=== PATIENT | male | born 1965 | race Caucasian/White ===

== ENCOUNTER 2021-06-14 19:14 | Inpatient (IN) | payer BC ==
[2021-06-14] MEDS ORDERED: SODIUM CHLORIDE 0.9% 500 ML 500 ML IV STA (20:07)
[2021-06-14] MEDS ORDERED: ALBUTEROL HFA INHALER INHALATION STA (20:07)
[2021-06-14] MEDS ORDERED: DEXAMETHASONE SOD PHOSPHATE 10 MG/ML 1 ML VIAL IVP STA (20:08)
--- NOTE | 2021-06-14 20:12 | ED ---
General Adult HPI - General Chief complaint: Upper Respiratory Infection Stated complaint: ELIDA-covid+ Time Seen by Provider: 06/14/21 20:00 Source: patient, RN notes reviewed, old records reviewed Mode of arrival: wheelchair Limitations: no limitations - History of Present Illness Initial comments: 55-year-old male presents to the emergency room with 1 week of cough and congestion. He was diagnosed with coronavirus on May 09. He has been having increasing shortness of breath and weakness. He states that sometimes he feels as though his balance is off. He states he's had decreased oral intake. He denies any pain or fevers, no nausea, vomiting or diarrhea. No medications on a daily basis. He does smoke 2 packs a day. -: week(s) (1) Location: chest Severity scale (1-10): 1 (Bodyaches) Associated Symptoms: cough, malaise, shortness of breath, weakness Treatments Prior to Arrival: none - Related Data Home Medications Medication Instructions Recorded Confirmed No Known Home Medications 06/14/21 06/14/21 Allergies Allergy/AdvReac Type Severity Reaction Status Date / Time No Known Allergies Allergy Verified 06/14/21 20:36 Review of Systems ROS Statement: Those systems with pertinent positive or pertinent negative responses have been documented in the HPI. ROS Other: All systems not noted in ROS Statement are negative. Past Medical History Past Medical History: Hypertension Additional Past Medical History / Comment(s): covid 06/08/21 History of Any Multi-Drug Resistant Organisms: Unobtainable Past Surgical History: No Surgical Hx Reported Past Psychological History: No Psychological Hx Reported Smoking Status: Current every day smoker Past Alcohol Use History: None Reported Past Drug Use History: None Reported General Exam Limitations: no limitations General appearance: alert, in no apparent distress Head exam: Present: atraumatic Eye exam: Present: normal appearance, EOMI, other (skin tag right eyelid) ENT exam: Present: normal exam, mucous membranes dry Neck exam: Present: full ROM. Absent: tenderness, meningismus Respiratory exam: Present: wheezes, decreased breath sounds (Diminished on the right). Absent: rales, rhonchi, chest wall tenderness, accessory muscle use Cardiovascular Exam: Present: regular rate, normal heart sounds. Absent: JVD GI/Abdominal exam: Present: soft. Absent: tenderness Extremities exam: Absent: pedal edema Back exam: Absent: tenderness, CVA tenderness (R), CVA tenderness (L) Neurological exam: Present: alert, oriented X3, CN II-XII intact Expanded Patient oriented to: Present: person, place, time Speech: Present: fluid speech Cranial nerves: EOM's Intact: Normal, Gag Reflex: Normal, Tongue Deviation: Normal Cerebellar function: Finger to Nose: Normal Motor strength exam: RUE: 5, LUE: 5, RLE: 5, LLE: 5 Eye Response: (4) open spontaneously Motor Response: (6) obeys commands Verbal Response: (5) oriented [place] Total: 15 Psychiatric exam: Present: normal affect, normal mood Skin exam: Present: warm, dry, intact, normal color. Absent: cyanosis, diaphoretic, erythema Course Vital Signs 06/14/21 06/14/21 19:40 21:10 Temperature 98.9 F Pulse Rate 91 79 Respiratory 24 20 Rate Blood Pressure 129/89 123/79 O2 Sat by Pulse 91 L 96 Oximetry EKG Findings - EKG Comments: EKG Findings:: Repeat EKG at 2154 shows sinus rhythm with a ventricular rate of 76, PA interval 0.184, QRS 0.112, QTC 0.465 - EKG Results: EKG: sinus rhythm (Ventricular rate of 83, PA interval 0.178, QRS 0.120, QTC 0.491) Medical Decision Making - Medical Decision Making 55-year-old male presents with cough and congestion with increasing shortness of breath and weakness. He was diagnosed with coronavirus on May 09. Chest x-ray shows mild multifocal ill-defined bases consistent with atypical pneumonia. Patient's troponin is elevated at 1.190, d-dimer is 1.95, creatinine is 1.55 with a GFR of 50. Patient was given IV fluids and was started on heparin drip. CT angiogram was not performed based on patient's creatinine and GFR. I did discuss this case with Dr. Awan and Dr. Mcmillan. Patient will be admitted to the hospital with cardiology and pulmonology consults. Patient is agreeable to this plan of care. Oxygen saturation is 97% and he is feeling better after IV fluids and medications. - Lab Data Result diagrams: 06/14/21 21:10 06/14/21 21:10 Lab Results 06/14/21 06/14/21 06/14/21 Range/Units 21:10 21:10 21:10 WBC 6.4 (3.8-10.6) k/uL RBC 5.13 (4.30-5.90) m/uL Hgb 17.5 (13.0-17.5) gm/dL Hct 51.2 (39.0-53.0) % MCV 99.8 (80.0-100.0) fL MCH 34.1 (25.0-35.0) pg MCHC 34.2 (31.0-37.0) g/dL RDW 14.0 (11.5-15.5) % Plt Count 153 (150-450) k/uL MPV 10.0 Neutrophils % 75 % Lymphocytes % 14 % Monocytes % 5 % Eosinophils % 1 % Basophils % 1 % Neutrophils # 4.8 (1.3-7.7) k/uL Lymphocytes # 0.9 L (1.0-4.8) k/uL Monocytes # 0.3 (0-1.0) k/uL Eosinophils # 0.1 (0-0.7) k/uL Basophils # 0.0 (0-0.2) k/uL PT 10.5 (9.0-12.0) sec INR 1.0 (<1.2) APTT 23.2 (22.0-30.0) sec D-Dimer 1.95 H (<0.60) mg/L FEU Sodium 135 L (137-145) mmol/L Potassium 3.8 (3.5-5.1) mmol/L Chloride 102 (98-107) mmol/L Carbon Dioxide 27 (22-30) mmol/L Anion Gap 6 mmol/L BUN 39 H (9-20) mg/dL Creatinine 1.55 H (0.66-1.25) mg/dL Est GFR (CKD-EPI)AfAm 57 (>60 ml/min/1.73 sqM) Est GFR (CKD-EPI)NonAf 50 (>60 ml/min/1.73 sqM) Glucose 122 H (74-99) mg/dL Plasma Lactic Acid Elvis (0.7-2.0) mmol/L Calcium 8.5 (8.4-10.2) mg/dL Magnesium 2.9 H (1.6-2.3) mg/dL Total Bilirubin 1.9 H (0.2-1.3) mg/dL AST 218 H (17-59) U/L ALT 168 H (4-49) U/L Alkaline Phosphatase 80 (38-126) U/L Troponin I (0.000-0.034) ng/mL Total Protein 6.7 (6.3-8.2) g/dL Albumin 3.6 (3.5-5.0) g/dL 06/14/21 06/14/21 Range/Units 21:10 21:10 WBC (3.8-10.6) k/uL RBC (4.30-5.90) m/uL Hgb (13.0-17.5) gm/dL Hct (39.0-53.0) % MCV (80.0-100.0) fL MCH (25.0-35.0) pg MCHC (31.0-37.0) g/dL RDW (11.5-15.5) % Plt Count (150-450) k/uL MPV Neutrophils % % Lymphocytes % % Monocytes % % Eosinophils % % Basophils % % Neutrophils # (1.3-7.7) k/uL Lymphocytes # (1.0-4.8) k/uL Monocytes # (0-1.0) k/uL Eosinophils # (0-0.7) k/uL Basophils # (0-0.2) k/uL PT (9.0-12.0) sec INR (<1.2) APTT (22.0-30.0) sec D-Dimer (<0.60) mg/L FEU Sodium (137-145) mmol/L Potassium (3.5-5.1) mmol/L Chloride (98-107) mmol/L Carbon Dioxide (22-30) mmol/L Anion Gap mmol/L BUN (9-20) mg/dL Creatinine (0.66-1.25) mg/dL Est GFR (CKD-EPI)AfAm (>60 ml/min/1.73 sqM) Est GFR (CKD-EPI)NonAf (>60 ml/min/1.73 sqM) Glucose (74-99) mg/dL Plasma Lactic Acid Elvis 1.6 (0.7-2.0) mmol/L Calcium (8.4-10.2) mg/dL Magnesium (1.6-2.3) mg/dL Total Bilirubin (0.2-1.3) mg/dL AST (17-59) U/L ALT (4-49) U/L Alkaline Phosphatase (38-126) U/L Troponin I 1.190 H* (0.000-0.034) ng/mL Total Protein (6.3-8.2) g/dL Albumin (3.5-5.0) g/dL Disposition Clinical Impression: COVID-19, Elevated troponin, Elevated d-dimer, Renal insufficiency Clinical Impression: (Ruled Out): Elevated dehydroepiandrosterone (DHEA) level Disposition: ADMITTED IP TO THIS HOSP Referrals: None,Stated [Primary Care Provider] - 1-2 days Decision Date: 06/14/21 Decision Time: 22:57
[2021-06-14] MEDS ORDERED: KETOROLAC 15 MG/ML 1 ML VIAL IVP STA (20:13)
[2021-06-14 21:19] LABS: Basophils % (A) 1 %; Eosinophils # (A) 0.1 k/uL (0-0.7); Eosinophils % (A) 1 %; HCT 51.2 % (39.0-53.0); HGB 17.5 gm/dL (13.0-17.5); Lymphocytes # (A) 0.9 k/uL (1.0-4.8); Lymphocytes % (A) 14 %; MCH 34.1 pg (25.0-35.0); MCHC 34.2 g/dL (31.0-37.0); MCV 99.8 fL (80.0-100.0); Monocytes # (A) 0.3 k/uL (0-1.0); Monocytes % (A) 5 %; Neutrophils # (A) 4.8 k/uL (1.3-7.7); Neutrophils % (A) 75 %; Platelet Count 153 k/uL (150-450); RBC 5.13 m/uL (4.30-5.90); WBC 6.4 k/uL (3.8-10.6)
[2021-06-14 21:31] LABS: Albumin 3.6 g/dL (3.5-5.0); Calcium 8.5 mg/dL (8.4-10.2); Magnesium 2.9 mg/dL (1.6-2.3); Potassium 3.8 mmol/L (3.5-5.1); Total Bilirubin 1.9 mg/dL (0.2-1.3); Total Protein 6.7 g/dL (6.3-8.2)
[2021-06-14 21:35] LABS: Partial Thromboplastin Time 23.2 sec (22.0-30.0); Prothrombin Time 10.5 sec (9.0-12.0)
--- NOTE | 2021-06-14 21:47 | XR ---
EXAMINATION: XR chest 2V DATE AND TIME: 06/14/2021 8:47 PM CLINICAL INDICATION: difficulty breathing TECHNIQUE: AP upright portable COMPARISON: None FINDINGS: There are scattered subtle multifocal ill-defined added opacities, positioning within the lung bases, the left midlung zone, and in the left suprahilar position. These findings are subtle and are diffic ult to corroborated on the lateral view, but they can correlate with a clinical diagnosis of atypical pneumonia. The pleural spaces are negative. The cardiac silhouette is not enlarged. The remainder of the mediastinal silhouette is unremarkable. The skeletal structures and soft tissues are negative for acute findings. IMPRESSION: Pulmonary findings.
[2021-06-14] MEDS ORDERED: SODIUM CHLORIDE 0.9% 1,000 ML IV ONE (22:44)
[2021-06-14] MEDS ORDERED: HEPARIN SODIUM 1,000 UN/ML (10ML VL) IV ONE (22:48)
[2021-06-14] MEDS ORDERED: HEPARIN SODIUM 1,000 UN/ML (10ML VL) IV PRN (22:48)
[2021-06-14] MEDS ORDERED: NALOXONE 0.4 MG/ML 1 ML VIAL IV PRN (22:59)
[2021-06-14] MEDS ORDERED: ACETAMINOPHEN TAB 325 MG TAB PO PRN (22:59)
[2021-06-14] MEDS: HEPARIN SOD,PORK IN 0.45% NACL 25,000 UNIT in 0.45% NACL 1 250ML.BAG IV SCH (23:14)
--- NOTE | 2021-06-15 02:50 | P.HPIM ---
History of Present Illness H&P Date: 06/15/21 Patient is a 55-year-old male with a PMH of tobacco abuse and hypertension who presented to the emergency room with complaints of gradually worsening shortness of breath and diffuse weakness. The patient notes that he was diagnosed with COVID 19 on June 09 and since then his symptoms have gradually progressed. He reports intermittent fevers, poor appetite, shortness of breath, and lethargic. Denied chest discomfort, palpitations, diaphoresis, lower extremity pain, nausea, vomiting, abdominal pain. EKG in the emergency room revealed a normal sinus rhythm at 76 bpm with left axis deviation with a poor baseline. Chest x-ray was consistent with atypical pneumonia. Laboratory evaluation revealed a troponin of 1.190, d-dimer 1.95, BUN 39, creatinine 1.55, total bilirubin 1.9, AST 218, ALT 168. The patient had n SpO2 of 91% on room air upon presentation. Review of systems: Pertinent positives and negatives as discussed in HPI, a complete review of systems was performed and all other systems are negative. Physical examination: General: non toxic, no distress, appears at stated age, normal weight Derm: no unusual rashes/lesions no unusual ecchymoses, warm, dry Head: atraumatic, normocephalic, symmetric Eyes: EOMI, no lid lag, anicteric sclera, pupils equal round reactive to light ENT: Nose and ears atraumatic, no thrush, no pharyngeal erythema Neck: No thyromegaly, no cervical lymphadenopathy, trachea midline, supple Mouth: no lip lesion, mucus membranes moist Cardiovascular: S1S2 reg, no murmur, positive posterior tibial pulse bilateral, no edema, capillary refill less than 2 seconds Lungs: CTA bilateral, no rhonchi, no rales , no accessory muscle use Abdominal: soft, nontender to palpation, no guarding, no appreciable organomegaly, normal bowel sounds Ext: no gross muscle atrophy, muscle strength 5 out of 5 in all 4 extremities grossly, no contractures, Neuro: CN II-XI grossly intact, light touch intact all 4 extremities, finger to nose within normal limits, Psych: Alert, oriented, appropriate affect Assessment/plan Troponin elevation, possibly secondary to COVID pneumonia -Trend troponin -Cardiac monitoring -Echocardiogram -Cardiology consult -Continue with heparin infusion Elevated d-dimer, unable to rule out PE -Continue with heparin infusion for now in setting of acute kidney injury -Consider VQ scan in a.m. if kidney function does not improve Kidney injury, acute versus chronic -Continue with IV fluids DVT prophylaxis -Heparin infusion The patient is admitted with an anticipated greater than 2 midnight stay for evaluation of troponin elevation CODE STATUS: Full Code Discussed with: Patient Anticipated discharge date: 2-[address]: Home Past Medical History Past Medical History: Hypertension Additional Past Medical History / Comment(s): covid 06/08/21 History of Any Multi-Drug Resistant Organisms: None Reported Past Surgical History: No Surgical Hx Reported Past Anesthesia/Blood Transfusion Reactions: No Reported Reaction Past Psychological History: No Psychological Hx Reported Smoking Status: Former smoker Past Alcohol Use History: None Reported Additional Past Alcohol Use History / Comment(s): Pt reports previous history of heavy alcohol use. Also reports prior to being covid positive pt smoked two packs a day Past Drug Use History: None Reported - Past Family History Father Family Medical History: No Reported History Mother Family Medical History: Neurologic Disorder Additional Family Medical History / Comment(s): MS Medications and Allergies Home Medications Medication Instructions Recorded Confirmed Type No Known Home Medications 06/14/21 06/14/21 History Allergies Allergy/AdvReac Type Severity Reaction Status Date / Time No Known Allergies Allergy Verified 06/14/21 20:36 Physical Exam Vitals: Vital Signs Temp Pulse Pulse Resp BP BP Pulse Ox 06/15/21 01:58 18 06/15/21 01:30 97.4 F L 73 20 134/82 99 06/15/21 00:50 75 20 111/71 98 06/14/21 23:19 98.5 F 82 20 115/85 96 06/14/21 21:10 79 20 123/79 96 06/14/21 19:40 98.9 F 91 24 129/89 91 L Intake and Output 06/14/21 06/14/21 06/15/21 14:59 22:59 06:59 Intake Total 240 Balance 240 Intake: Oral 240 Other: Weight 136.078 kg 136.078 kg Results CBC & Chem 7: 06/14/21 21:10 06/14/21 21:10 Labs: Abnormal Lab Results - Last 24 Hours (Table) 06/14/21 06/14/21 06/14/21 Range/Units 21:10 21:10 21:10 Lymphocytes # 0.9 L (1.0-4.8) k/uL D-Dimer 1.95 H (<0.60) mg/L FEU Sodium 135 L (137-145) mmol/L BUN 39 H (9-20) mg/dL Creatinine 1.55 H (0.66-1.25) mg/dL Glucose 122 H (74-99) mg/dL Magnesium 2.9 H (1.6-2.3) mg/dL Total Bilirubin 1.9 H (0.2-1.3) mg/dL AST 218 H (17-59) U/L ALT 168 H (4-49) U/L Troponin I (0.000-0.034) ng/mL 06/14/21 Range/Units 21:10 Lymphocytes # (1.0-4.8) k/uL D-Dimer (<0.60) mg/L FEU Sodium (137-145) mmol/L BUN (9-20) mg/dL Creatinine (0.66-1.25) mg/dL Glucose (74-99) mg/dL Magnesium (1.6-2.3) mg/dL Total Bilirubin (0.2-1.3) mg/dL AST (17-59) U/L ALT (4-49) U/L Troponin I 1.190 H* (0.000-0.034) ng/mL Thrombosis Risk Factor Assmnt - Choose All That Apply Any of the Below Risk Factors Present?: Yes Each Factor Represents 1 point: Age 41-60 years, Medical pt on bed rest, Obesity (BMI >25), Serious lung disease incl. pneumonia (< 1month) Other Risk Factors: No Other congenital or acquired thrombophilia - If yes, enter type in comment: No Thrombosis Risk Factor Assessment Total Risk Factor Score: 4 Thrombosis Risk Factor Assessment Level: Moderate Risk
[2021-06-15 06:16] LABS: Basophils % (A) 1 %; Eosinophils % (A) 0 %; HCT 50.6 % (39.0-53.0); HGB 16.8 gm/dL (13.0-17.5); Lymphocytes # (A) 0.6 k/uL (1.0-4.8); Lymphocytes % (A) 13 %; MCHC 33.2 g/dL (31.0-37.0); MCV 99.6 fL (80.0-100.0); Mean Platelet Volume 10.4; Monocytes # (A) 0.4 k/uL (0-1.0); Monocytes % (A) 8 %; Neutrophils # (A) 3.6 k/uL (1.3-7.7); Neutrophils % (A) 75 %; Platelet Count 161 k/uL (150-450); RBC 5.08 m/uL (4.30-5.90); RDW 13.4 % (11.5-15.5); WBC 4.7 k/uL (3.8-10.6)
[2021-06-15 06:46] LABS: Calcium 8.7 mg/dL (8.4-10.2); Potassium 4.3 mmol/L (3.5-5.1)
--- NOTE | 2021-06-15 11:26 | NM ---
EXAMINATION TYPE: NM pul perfusion DATE OF EXAM: 06/15/2021 COMPARISON: Radiograph 06/14/2021 HISTORY: 55-year-old male with shortness of breath, cough and positive, elevated d-dimer, rule out PE TECHNIQUE: Following administration of 5.3 mCi Tc 99m MAA. Images obtained post injection. FINDINGS: Slight global decrease in perfusion throughout the left lung. No discrete perfusion defect is identif ied. IMPRESSION: Low probability for pulmonary embolus.
[2021-06-15] MEDS: HEPARIN SOD,PORK IN 0.45% NACL 25,000 UNIT in 0.45% NACL 1 250ML.BAG IV SCH ×2 (11:31→23:52)
--- NOTE | 2021-06-15 11:35 | ECHOF ---
Referral Reason:troponin elevation MEASUREMENTS -------- HEIGHT: 188.0 cm WEIGHT: 136.1 kg BP: 139/84 IVSd: 1.6 cm (0.6 - 1.1) LVIDd: 6.9 cm (3.9 - 5.3) LVPWd: 1.4 cm (0.6 - 1.1) EDV(Teich): 251 ml IVSs: 2.3 cm LVIDs: 5.1 cm LVPWs: 1.6 cm %IVS Thck: 39 % ESV(Teich): 125 ml EF(Teich): 50 % %FS: 26 % SV(Teich): 125 ml LA Diam: 4.6 cm (2.7 - 3.8) RVIDd: 3.3 cm (< 3.3) LALs A4C: 7.8 cm LAAs A4C: 33.5 cm LAESV A-L A4C: 122 ml LAESV MOD A4C: 117 ml LALs A2C: 7.6 cm LAAs A2C: 33.4 cm LAESV A-L A2C: 124 ml LAESV MOD A2C: 119 ml LAESV(A-L): 124 ml LAESV Index (A-L): 48.23 ml/m Ao Diam: 3.9 cm (2.0 - 3.7) AV Cusp: 2.3 cm (1.5 - 2.6) EPSS: 2.1 cm MV E Gui: 0.90 m/s MV DecT: 134 ms MV Dec Nash: 6.7 m/s MV A Gui: 0.42 m/s MV E/A Ratio: 2.14 MV PHT: 39 ms AV Vmax: 1.09 m/s AV maxP.76 mmHg TR Vmax: 2.89 m/s TR maxP.37 mmHg RAP: 5.00 mmHg RVSP: 38.37 mmHg MV EF SLOPE: 141.70 mm/s (70 - 150) MV EXCURSION: 19.78 mm (> 18.000) FINDINGS -------- Sinus rhythm. This was a technically adequate study. The left ventricle is severely dilated. There is moderate concentric left ventricular hypertrophy. Overall left ventricular systolic function is severely impaired with, an EF between 20 - 25 %. The right ventricle is mildly enlarged. LA is severely dilated >40 ml/m2 The right atrium is normal in size. Interatrial and interventricular septum intact. The aortic valve is trileaflet, and appears structurally normal. No aortic stenosis or regurgitation. Mild mitral regurgitation is present. Mild tricuspid regurgitation present. There is mild pulmonary hypertension. The right ventricular systolic pressure, as measured by Doppler, is 38.37mmHg. The pulmonic valve was not well visualized. The aortic root is dilated measuring 3.9cm. Normal inferior vena cava with normal inspiratory collapse consistent with estimated right atrial pre ssure of 5 mmHg. There is no pericardial effusion. CONCLUSIONS -------- 1. The left ventricle is severely dilated. 2. There is moderate concentric left ventricular hypertrophy. 3. Overall left ventricular systolic function is severely impaired with, an EF between 20 - 25 %. 4. The right ventricle is mildly enlarged. 5. LA is severely dilated >40 ml/m2 6. The aortic valve is trileaflet, and appears structurally normal. No aortic stenosis or regurgitati on. 7. Mild mitral regurgitation is present. 8. Mild tricuspid regurgitation present. 9. There is mild pulmonary hypertension. 10. The right ventricular systolic pressure, as measured by Doppler, is 38.37mmHg. 11. The aortic root is dilated measuring 3.9cm. 12. There is no pericardial effusion. WAFER FABRICATOR: Lucia Donovan RDCS
--- NOTE | 2021-06-15 11:44 | US ---
EXAMINATION TYPE: US venous doppler duplex LE DATE OF EXAM: 06/15/2021 10:25 AM COMPARISON: NONE CLINICAL HISTORY: 55-year-old male LE swelling, elevated D-Dimer. COVID SIDE PERFORMED: Bilateral TECHNIQUE: The lower extremity deep venous system is examined utilizing real time linear array sonog lety with graded compression, doppler sonography and color-flow sonography. FINDINGS: VESSELS IMAGED: Common Femoral Vein Deep Femoral Vein Greater Saphenous Vein * Femoral Vein Popliteal Vein Small Saphenous Vein * Proximal Calf Veins (* superficial vessels) Right Leg: no evidence of DVT. Slow, rouleaux flow noted Left Leg: no evidence of DVT. Slow, rouleaux flow noted. *Incidental finding: Large amount of plaque left popliteal artery IMPRESSION: 1. No evidence for DVT within the bilateral lower extremity is imaged from the groin to the upper roxana ves. Some segments of slow flow are noted. 2. Severe focal plaque left popliteal artery. A significant, severe stenosis is suggested.
[2021-06-15] MEDS: METOPROLOL SUCCINATE (ER) 25 MG TAB.ER.24H PO SCH (11:46)
[2021-06-15] MEDS: ASPIRIN 81 MG PO SCH (11:46)
--- NOTE | 2021-06-15 11:47 | P.CRDCN ---
History of Present Illness Consult date: 06/15/21 History of present illness: HISTORY OF PRESENT ILLNESS: This is a 55-year-old male with a past medical history significant for hypertension but does not currently take and hypertensive medications and nicotine dependence (2 PPD). 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 We have been asked to see the patient in consultation for abnormal troponins. Patient examined at the bedside. Patient states he was diagnosed with Covid about a week ago. He did not receive the vaccine. The patient presented to the ER with a chief complaint of weakness, falls, and shortness of breath. The patient denies any chest pain or pressure. Vital signs are stable. EKG reveals sinus mechanism with nonspecific ST-T wave changes Chest xray scattered subtle multifocal ill-defined opacities, positioned within the lung bases, the left lung zone and the left suprahilar position. Correlate with clinical diagnosis of atypical pneumonia. Laboratory data: WBC 4.7. Hemoglobin 16.8. Platelet count 161. D-dimer 1.95. Sodium 137. Potassium 4.3 BUN 35. Creatinine 1.40. Lactic acid 1.6. AST 218. ALT 168. Troponin 1.190. 0.722 Current home cardiac medications include none Echocardiogram completed revealing ejection fraction 20-25%, mild mitral regurgitation, mild tricuspid regurgitation REVIEW OF SYSTEMS: Thorough review of systems not completed secondary to limited evaluation/examination due to Covid19 PHYSICAL EXAM: Thorough physical exam not completed secondary to limited evaluation/examination due to Covid19 ASSESSMENT: Covid 19 Cardiomyopathy, etiology unclear Abnormal troponins, etiology unclear, r/o myocarditis, rule out underlying coronary artery disease Acute kidney injury Elevated d-dimer, rule out PE Acute kidney injury Transaminitis Hypertension Nicotine dependence PLAN: 2-D echo obtained and reviewed Continue to trend troponins Continue IV heparin Add aspirin 81 mg daily Add metoprolol succinate 25 mg daily Hold off on adding JERSON/ARB secondary to acute kidney injury Hold off on adding statin secondary to transaminitis Obtain VQ scan to rule out pulmonary embolism Patient will require cardiac catheterization in the future to rule out underlying coronary artery disease Further recommendations pain patient course Nurse practitioner note has been reviewed by physician. Signing provider agrees with the documented findings, assessment, and plan of care. Past Medical History Past Medical History: Hypertension Additional Past Medical History / Comment(s): covid 06/08/21 History of Any Multi-Drug Resistant Organisms: None Reported Past Surgical History: No Surgical Hx Reported Past Anesthesia/Blood Transfusion Reactions: No Reported Reaction Past Psychological History: No Psychological Hx Reported Smoking Status: Former smoker Past Alcohol Use History: None Reported Additional Past Alcohol Use History / Comment(s): Pt reports previous history of heavy alcohol use. Also reports prior to being covid positive pt smoked two packs a day Past Drug Use History: None Reported - Past Family History Father Family Medical History: No Reported History Mother Family Medical History: Neurologic Disorder Additional Family Medical History / Comment(s): MS Medications and Allergies Home Medications Medication Instructions Recorded Confirmed Type No Known Home Medications 06/14/21 06/14/21 History Allergies Allergy/AdvReac Type Severity Reaction Status Date / Time No Known Allergies Allergy Verified 06/14/21 20:36 Physical Exam Vitals: Vital Signs Temp Pulse Pulse Resp BP BP Pulse Ox 06/15/21 04:00 98 F 70 20 139/84 99 06/15/21 01:58 18 06/15/21 01:30 97.4 F L 73 20 134/82 99 06/15/21 00:50 75 20 111/71 98 06/14/21 23:19 98.5 F 82 20 115/85 96 06/14/21 21:10 79 20 123/79 96 06/14/21 19:40 98.9 F 91 24 129/89 91 L Intake and Output 06/14/21 06/15/21 06/15/21 22:59 06:59 14:59 Intake Total 240 179.017 Output Total 400 Balance -160 179.017 Intake: Intake, IV Titration 179.017 Amount Heparin Sod,Pork in 0.45% 179.017 NaCl 25,000 unit In 0.45 % NaCl 1 250ml.bag @ 16. 9021 UNITS/KG/HR 23 mls/ hr IV .[id number] [facility] Rx#: [id number] Oral 240 Output: Urine 400 Other: # Voids 1 Weight 136.078 kg 136.078 kg Results 06/15/21 05:21 06/15/21 05:21 Cardiac Enzymes 06/14/21 06/14/21 Range/Units 21:10 21:10 AST 218 H (17-59) U/L Troponin I 1.190 H* (0.000-0.034) ng/mL Coagulation 06/14/21 06/15/21 Range/Units 21:10 05:21 PT 10.5 (9.0-12.0) sec APTT 23.2 105.7 H* (22.0-30.0) sec CBC 06/14/21 06/15/21 Range/Units 21:10 05:21 WBC 6.4 4.7 (3.8-10.6) k/uL RBC 5.13 5.08 (4.30-5.90) m/uL Hgb 17.5 16.8 (13.0-17.5) gm/dL Hct 51.2 50.6 (39.0-53.0) % Plt Count 153 161 (150-450) k/uL Comprehensive Metabolic Panel 06/14/21 06/15/21 Range/Units 21:10 05:21 Sodium 135 L 137 (137-145) mmol/L Potassium 3.8 4.3 (3.5-5.1) mmol/L Chloride 102 104 (98-107) mmol/L Carbon Dioxide 27 27 (22-30) mmol/L BUN 39 H 35 H (9-20) mg/dL Creatinine 1.55 H 1.40 H (0.66-1.25) mg/dL Glucose 122 H 148 H (74-99) mg/dL Calcium 8.5 8.7 (8.4-10.2) mg/dL AST 218 H (17-59) U/L ALT 168 H (4-49) U/L Alkaline Phosphatase 80 (38-126) U/L Total Protein 6.7 (6.3-8.2) g/dL Albumin 3.6 (3.5-5.0) g/dL Current Medications Generic Name Dose Route Start Last Admin Trade Name Freq PRN Reason Stop Dose Admin Acetaminophen 650 mg 06/14/21 22:59 Acetaminophen Tab 325 Mg Tab PO Q6HR PRN Mild Pain or Fever > 100.5 Heparin Sodium (Porcine) 0 unit 06/14/21 22:48 Heparin Sodium 1,000 Un/Ml (10ml Vl) IV PER PROTOCOL PRN Low PTT Protocol Heparin Sodium/Sodium Chloride 250 mls @ 23 mls/hr 06/14/21 23:00 06/15/21 07:01 25,000 unit/ Sodium Chloride IV 13.9 units/kg/hr .[id number] SHARRON 18.915 mls/hr Titration Protocol 16.9021 UNITS/KG/HR Naloxone HCl 0.2 mg 06/14/21 22:59 Naloxone 0.4 Mg/Ml 1 Ml Vial IV Q2M PRN Opioid Reversal Intake and Output 06/14/21 06/15/21 06/15/21 22:59 06:59 14:59 Intake Total 240 179.017 Output Total 400 Balance -160 179.017 Intake: Intake, IV Titration 179.017 Amount Heparin Sod,Pork in 0.45% 179.017 NaCl 25,000 unit In 0.45 % NaCl 1 250ml.bag @ 16. 9021 UNITS/KG/HR 23 mls/ hr IV .[id number] [facility] Rx#: [id number] Oral 240 Output: Urine 400 Other: # Voids 1 Weight 136.078 kg 136.078 kg 06/15/21 05:21 06/15/21 05:21
--- NOTE | 2021-06-15 15:29 | P.CNPUL ---
History of Present Illness Consult date: 06/15/21 Requesting physician: Donovan Mcmillan Reason for consult: dyspnea, abnormal CXR/CT Chief complaint: Shortness of breath, weakness, dizziness History of present illness: This is a pleasant 55-year-old male patient with no current primary care provider. No current home medications. He does have a history of 40 years up to 2 packs per day smoking history. He had presented to the emergency room yes terday with a one to two-week history of cough congestion shortness of breath. He states he was diagnosed with CoVID 19 on 06/09/2020 and his symptoms have gradually gotten worse. He's been quite weak. Poor appetite. Chest x-ray reveals scattered subtle multifocal ill-defined opacities bilaterally. Echocardiogram revealed severely impaired left ventricular systolic function with ejection fraction 20-25%. Doppler of the lower extremity revealed no evidence of DVT. VQ scan revealed low probability for PE. EKG revealed nonspecific ST and T wave abnormalities. Troponins 1.19, 0.72, 0.66. WBC 4.7. Hemoglobin 16.8. Lymphocytes 0.6. D-dimer 1.95. Sodium 137. Potassium 4.3. Creatinine 1.4. Glucose 148. AST 218. ALT 168. He is seen today in consultation on the selective care unit. He is currently sitting up at the bedside. Awake and alert in no acute distress. He denies any worsening shortness of breath, cough or congestion. No chest pain. No hemoptysis. He's been initiated on a heparin drip. 0.9 normal saying at 20 mls per hour. Review of Systems REVIEW OF SYSTEMS: CONSTITUTIONAL: Positive for generalized weakness, dizziness lightheadedness. Denies any recent significant weight loss or weight gain. EYES: Denies change in vision. EARS, NOSE, MOUTH, THROAT: Denies headaches, denies sore throat. CARDIOVASCULAR: Denies chest pain, palpitations or syncopal episodes. RESPIRATORY: Denies shortness of breath, cough, congestion or hemoptysis. GASTROINTESTINAL: Denies change in appetite, denies abdominal pain GENITOURINARY: Denies hematuria, denies infections. MUSKULOSKELETAL: Denies pain, denies swelling. INTEGUMENTARY: Denies rash, denies eczema. NEUROLOGICAL: Denies recent memory loss, no recent seizure activity. PSYCHIATRIC: Denies anxiety, denies depression. HEMATOLOGIC/LYMPHATIC: Denies anemia, denies enlarged lymph nodes. Past Medical History Past Medical History: Hypertension Additional Past Medical History / Comment(s): covid 06/08/21 History of Any Multi-Drug Resistant Organisms: None Reported Past Surgical History: No Surgical Hx Reported Past Anesthesia/Blood Transfusion Reactions: No Reported Reaction Past Psychological History: No Psychological Hx Reported Smoking Status: Former smoker Past Alcohol Use History: None Reported Additional Past Alcohol Use History / Comment(s): Pt reports previous history of heavy alcohol use. Also reports prior to being covid positive pt smoked two packs a day Past Drug Use History: None Reported - Past Family History Father Family Medical History: No Reported History Mother Family Medical History: Neurologic Disorder Additional Family Medical History / Comment(s): MS Medications and Allergies Home Medications Medication Instructions Recorded Confirmed Type No Known Home Medications 06/14/21 06/14/21 History Allergies Allergy/AdvReac Type Severity Reaction Status Date / Time No Known Allergies Allergy Verified 06/14/21 20:36 Physical Exam Vitals: Vital Signs Temp Pulse Pulse Resp BP BP Pulse Ox 06/15/21 13:53 75 16 06/15/21 12:00 97.9 F 75 16 97 06/15/21 08:00 97.5 F L 68 19 138/83 100 06/15/21 04:00 98 F 70 20 139/84 99 06/15/21 01:58 18 06/15/21 01:30 97.4 F L 73 20 134/82 99 06/15/21 00:50 75 20 111/71 98 06/14/21 23:19 98.5 F 82 20 115/85 96 06/14/21 21:10 79 20 123/79 96 06/14/21 19:40 98.9 F 91 24 129/89 91 L Intake and Output 06/15/21 06/15/21 06/15/21 06:59 14:59 22:59 Intake Total 240 690.000 Output Total 400 400 Balance -160 290.000 Intake: Intake, IV Titration 250.000 Amount Heparin Sod,Pork in 0.45% 250.000 NaCl 25,000 unit In 0.45 % NaCl 1 250ml.bag @ 16. 9021 UNITS/KG/HR 23 mls/ hr IV .[id number] [facility] Rx#: [id number] Oral 240 440 Output: Urine 400 400 Other: Voiding Method Urinal # Voids 1 1 Weight 136.078 kg GENERAL EXAM: Alert, pleasant 55-year-old male patient, on 2 L nasal cannula, comfortable in no apparent distress. HEAD: Normocephalic. EYES: Normal reaction of pupils, equal size. NOSE: Clear with pink turbinates. THROAT: No erythema or exudates. NECK: No masses, no JVD. CHEST: No chest wall deformity. LUNGS: Equal air entry with crackles in the bilateral bases CVS: S1 and S2 normal with no audible murmur, regular rhythm. ABDOMEN: No hepatosplenomegaly, normal bowel sounds, no guarding or rigidity. SPINE: No scoliosis or deformity SKIN: No rashes CENTRAL NERVOUS SYSTEM: No focal deficits, tone is normal in all 4 extremities. EXTREMITIES: There is no peripheral edema. No clubbing, no cyanosis. Peripheral pulses are intact. Results - Laboratory Findings CBC and BMP: 06/15/21 05:21 06/15/21 05:21 PT/INR, D-dimer PT 10.5 sec (9.0-12.0) 06/14/21 21:10 INR 1.0 (<1.2) 06/14/21 21:10 D-Dimer 1.95 mg/L FEU (<0.60) H 06/14/21 21:10 Abnormal lab findings: Abnormal Labs 06/14/21 06/14/21 06/14/21 21:10 21:10 21:10 Lymphocytes # 0.9 L APTT D-Dimer 1.95 H Sodium 135 L BUN 39 H Creatinine 1.55 H Glucose 122 H Magnesium 2.9 H Total Bilirubin 1.9 H AST 218 H ALT 168 H Troponin I 06/14/21 06/15/21 06/15/21 21:10 05:21 05:21 Lymphocytes # 0.6 L APTT 105.7 H* D-Dimer Sodium BUN Creatinine Glucose Magnesium Total Bilirubin AST ALT Troponin I 1.190 H* 06/15/21 06/15/21 06/15/21 05:21 09:11 12:14 Lymphocytes # APTT 55.4 H D-Dimer Sodium BUN 35 H Creatinine 1.40 H Glucose 148 H Magnesium Total Bilirubin AST ALT Troponin I 0.722 H* 06/15/21 12:14 Lymphocytes # APTT D-Dimer Sodium BUN Creatinine Glucose Magnesium Total Bilirubin AST ALT Troponin I 0.666 H* - Diagnostic Findings Chest x-ray: image reviewed Assessment and Plan Assessment: 1 Acute hypoxemic respiratory failure secondary to COVID-19 infection without significant pulmonary complaints and mild infiltrates on x-ray. Low probability for DVT per VQ scan. Negative Dopplers for DVT. 2 Elevated troponins in a patient found to have severe left ventricular systolic dysfunction with ejection fraction 20-25%. 3 transaminitis secondary to above 4 Acute renal failure 5 Chronic tobacco dependence of greater than 50 years 6 History of hypertension Plan: The patient was seen and evaluated Add Decadron and vitamin supplements Continue heparin drip per cardiology Titrate the FiO2 as tolerated Follow-up chest x-ray and labs in a.m. We will continue to follow and make further recommendations based on his clinical status I, the cosigning physician, performed a history & physical examination of the patient. Lungs sounds with crackles in the bilateral bases. Maintaining good O2 saturations in the 90s on 2 L/m per nasal cannula. I discussed the assessment and plan of care with my nurse practitioner, Tasha No. I attest to the above consultation as dictated by her. Time with Patient: Greater than 30
[2021-06-15] MEDS: ASCORBIC ACID 500 MG TAB PO SCH (17:24)
[2021-06-15] MEDS: ZINC SULFATE 220 MG CAP PO SCH (17:24)
[2021-06-15] MEDS: CHOLECALCIFEROL 125 MCG (5000 IU) TABLET PO SCH (17:24)
--- NOTE | 2021-06-16 08:56 | P.PN ---
Subjective Progress Note Date: 06/16/21 HISTORY OF PRESENT ILLNESS: This is a 55-year-old male with a past medical history significant for hypertension but does not currently take and hypertensive medications and nicotine dependence (2 PPD). 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 We have been asked to see the patient in consultation for abnormal troponins. Patient examined at the bedside. Patient states he was diagnosed with Covid about a week ago. He did not receive the vaccine. The patient presented to the E with a chief complaint of weakness, falls, and shortness of breath. The patient denies any chest pain or pressure. Vital signs are stable. EKG revealed sinus mechanism with nonspecific ST-T wave changes. Chest xray scattered subtle multifocal ill-defined opacities, positioned within the lung bases, the left lung zone and the left suprahilar position. Correlate with clinical diagnosis of atypical pneumonia. Laboratory data: WBC 4.7. Hemoglobin 16.8. Platelet count 161. D-dimer 1.95. Sodium 137. Potassium 4.3 BUN 35. Creatinine 1.40. Lactic acid 1.6. AST 218. ALT 168. Troponins trending downward 1.190. 0.722. Echocardiogram completed revealing ejection fraction 20-25%, mild mitral regurgitation, mild tricuspid regurgitation 06/16/21 Patient seen and fully evaluated this morning. Sitting up on the side of the bed on 3 L O2 via nasal cannula. He denied having any headache, lightheadedness, dizziness, chest pain, palpitations, or any other complaints at this time. Patient reports shortness of breath is unchanged and pretty much resolved at rest and increases with any movement or exertion. Troponin's improved from 1.190, 0.7-2, and 0.666. Heparin infusion and uterine patient was started on Lovenox 40 mg subcu daily for DVT prophylaxis. To continue daily aspirin and metoprolol. Labs reveal resolution of acute kidney injury. We will continue to hold statin secondary to transaminitis and we will begin JERSON/ARB and Aldactone to treat ischemic cardiomyopathy with EF 20-25% secondary to resolution of ALFREDO. REVIEW OF SYSTEMS: Thorough review of systems not completed secondary to limited evaluation/examination due to Covid19 PHYSICAL EXAM: Thorough physical exam not completed secondary to limited evaluation/examination due to Covid19 ASSESSMENT: Covid 19 Ischemic Cardiomyopathy with EF of 20-25% Elevated troponins, downward trend, acute coronary event ruled out Acute kidney injury Elevated d-dimer, VQ scan showing low probability for PE Acute kidney injury, resolved Transaminitis Hypertension Nicotine dependence PLAN: 2-D echo obtained and reviewed, EF of 20-25% IV heparin discontinued, patient placed on Lovenox for DVT prophylaxis. Continuation of aspirin and metoprolol, and we will begin JERSON/ARB and Aldactone to treat ischemic cardiomyopathy with EF 20-25% secondary to resolution of ALFREDO. Continue to Hold off on adding statin secondary to transaminitis Continue telemetry monitoring Patient will require cardiac catheterization in the future to rule out underlying coronary artery disease Further recommendations pending patient's clinical course Nurse practitioner note has been reviewed by physician. Signing provider agrees with the documented findings, assessment, and plan of care. Objective - Vital Signs Vital signs: Vital Signs Temp 98.2 F 06/16/21 04:00 Pulse 70 06/16/21 04:00 Resp 18 06/16/21 04:00 BP 128/78 06/16/21 04:00 Pulse Ox 96 06/16/21 04:00 Intake & Output 06/15/21 06/16/21 06/16/21 18:59 06:59 18:59 Intake Total 890.000 713.6 Output Total 400 250 Balance 490.000 463.6 Weight 135.5 kg Intake: Intake, IV Titration 250.000 233.6 Amount Heparin Sod,Pork in 0.45% 250.000 233.6 NaCl 25,000 unit In 0.45 % NaCl 1 250ml.bag @ 16. 9021 UNITS/KG/HR 23 mls/ hr IV .[id number] [facility] Rx#: [id number] Oral 640 480 Output: Urine 400 250 Other: Voiding Method Urinal Urinal # Voids 1 # Bowel Movements 1 - Labs CBC & Chem 7: 06/16/21 08:24 06/16/21 08:24 Labs: Abnormal Lab Results - Last 24 Hours (Table) 06/15/21 06/15/21 06/15/21 Range/Units 09:11 12:14 12:14 APTT 55.4 H (22.0-30.0) sec Troponin I 0.722 H* 0.666 H* (0.000-0.034) ng/mL
[2021-06-16 09:09] LABS: HCT 49.6 % (39.0-53.0); HGB 16.9 gm/dL (13.0-17.5); MCH 34.2 pg (25.0-35.0); MCHC 34.1 g/dL (31.0-37.0); MCV 100.4 fL (80.0-100.0); Mean Platelet Volume 9.1; Platelet Count 229 k/uL (150-450); RBC 4.94 m/uL (4.30-5.90); RDW 14.1 % (11.5-15.5); WBC 6.3 k/uL (3.8-10.6)
[2021-06-16 09:23] LABS: African American GFR (CKD) >90 (>60 ml/min/1.73 sqM); Anion Gap 4 mmol/L; Blood Urea Nitrogen 24 mg/dL (9-20); Calcium 8.5 mg/dL (8.4-10.2); Carbon Dioxide 24 mmol/L (22-30); Chloride 107 mmol/L (98-107); Glucose 132 mg/dL (74-99); Non-African American GFR(CKD) 80 (>60 ml/min/1.73 sqM); Potassium 4.2 mmol/L (3.5-5.1); Sodium 135 mmol/L (137-145)
[2021-06-16] MEDS: ASPIRIN 81 MG PO SCH (09:23)
[2021-06-16] MEDS: METOPROLOL SUCCINATE (ER) 25 MG TAB.ER.24H PO SCH (09:23)
[2021-06-16] MEDS: ZINC SULFATE 220 MG CAP PO SCH (09:23)
[2021-06-16] MEDS: CHOLECALCIFEROL 125 MCG (5000 IU) TABLET PO SCH (09:23)
[2021-06-16] MEDS: ASCORBIC ACID 500 MG TAB PO SCH (09:23)
[2021-06-16] MEDS: dexAMETHasone 2 MG TAB PO SCH (09:24)
[2021-06-16] MEDS: HEPARIN SOD,PORK IN 0.45% NACL 25,000 UNIT in 0.45% NACL 1 250ML.BAG IV SCH (09:56)
--- NOTE | 2021-06-16 11:24 | P.PN ---
Subjective Progress Note Date: 06/16/21 Principal diagnosis: CC: shortness of breath Patient is a 55-year-old male with a past medical history tobacco abuse and hypertension who presented to the ED with gradually worsening shortness of breath and weakness. Patient was found to have COVID-19. He was also found to have acute kidney injury. He was also found to have COVID-19. His troponin was also elevated. Patient was started on fluids and his renal function improved. Patient started on dexamethasone and multivitamins. Patient also on heparin drip. Echocardiogram showed EF of 2025%. Cardiology and pulmonology following the patient. 06/16/2021: Patient states that his shortness of breath is stable. He is currently on 3 L nasal cannula. Objective - Vital Signs Vital signs: Vital Signs Temp 98.2 F 06/16/21 04:00 Pulse 77 06/16/21 08:00 Resp 20 06/16/21 08:00 BP 132/75 06/16/21 08:00 Pulse Ox 96 06/16/21 08:00 Intake & Output 06/15/21 06/16/21 06/16/21 18:59 06:59 18:59 Intake Total 890.000 713.6 429.15 Output Total 400 250 Balance 490.000 463.6 429.15 Weight 135.5 kg Intake: Intake, IV Titration 250.000 233.6 189.15 Amount Heparin Sod,Pork in 0.45% 250.000 233.6 189.15 NaCl 25,000 unit In 0.45 % NaCl 1 250ml.bag @ 16. 9021 UNITS/KG/HR 23 mls/ hr IV .[id number] [facility] Rx#: [id number] Oral 640 480 240 Output: Urine 400 250 Other: Voiding Method Urinal Urinal Urinal # Voids 1 # Bowel Movements 1 - Exam General examination - Alert and Oriented 3 in NAD, appears chronically debilitated Heart - + S1S2 no murmurs Lungs -crackles in bilateral lower lungs Abdomen soft NT ND +ve BS Extremities - No edema SERVICES EXECUTIVE - Moving all 4 extremities spontaneously Psych - Calm and cooperative - Labs CBC & Chem 7: 06/16/21 08:24 06/16/21 08:24 Labs: Abnormal Lab Results - Last 24 Hours (Table) 06/15/21 06/15/21 06/16/21 Range/Units 12:14 12:14 08:18 MCV (80.0-100.0) fL APTT 55.4 H 78.0 H (22.0-30.0) sec Sodium (137-145) mmol/L BUN (9-20) mg/dL Glucose (74-99) mg/dL Troponin I 0.666 H* (0.000-0.034) ng/mL 06/16/21 06/16/21 Range/Units 08:24 08:24 MCV 100.4 H (80.0-100.0) fL APTT (22.0-30.0) sec Sodium 135 L (137-145) mmol/L BUN 24 H (9-20) mg/dL Glucose 132 H (74-99) mg/dL Troponin I (0.000-0.034) ng/mL Assessment and Plan Assessment: Non-ST elevation WA -Patient currently on heparin drip -Awaiting further recommendations from cardiology regarding ischemic workup Acute hypoxic respiratory failure multifactorial secondary to heart failure and COVID-19 -Management as below -Patient currently on 3 L nasal cannula. -Wean O2 as tolerated Newly discovered systolic heart failure -We'll give patient 1 dose of IV Lasix 20 mg -> will defer further diuresing to cardiology -Strict I's and O's and daily weight -Cardiology started on metoprolol -No JERSON inhibitor due to renal failure COVID-19 -Resume dexamethasone -Patient currently on heparin drip -Resume multivitamins -Elevated d-dimer ->VQ scan low probability for PE and lower extremity Dopplers negative for DVT -Pulmonology following Acute kidney injury -Resolved with fluids DVT prophylaxis Heparin infusion CODE STATUS: full code Anticipation discharge date: 2-[address]: Home
[2021-06-16] MEDS ORDERED: FUROSEMIDE 10 MG/ML 2 ML VIAL IV ONE (11:45)
--- NOTE | 2021-06-16 15:54 | P.PN ---
Subjective Progress Note Date: 06/16/21 This is a pleasant 55-year-old male patient with no current primary care provider. No current home medications. He does have a history of 40 years up to 2 packs per day smoking history. He had presented to the emergency room yesterday with a one to two-week history of cough congestion shortness of shannan th. He states he was diagnosed with CoVID 19 on 06/09/2020 and his symptoms have gradually gotten worse. He's been quite weak. Poor appetite. Chest x-ray reveals scattered subtle multifocal ill-defined opacities bilaterally. Echocardiogram revealed severely impaired left ventricular systolic function with ejection fraction 20-25%. Doppler of the lower extremity revealed no evidence of DVT. VQ scan revealed low probability for PE. EKG revealed nonspecific ST and T wave abnormalities. Troponins 1.19, 0.72, 0.66. WBC 4.7. Hemoglobin 16.8. Lymphocytes 0.6. D-dimer 1.95. Sodium 137. Potassium 4.3. Creatinine 1.4. Glucose 148. AST 218. ALT 168. He is seen today in consultation on the selective care unit. He is currently sitting up at the bedside. Awake and alert in no acute distress. He denies any worsening shortness of breath, cough or congestion. No chest pain. No hemoptysis. He's been initiated on a heparin drip. 0.9 normal saying at 20 mls per hour. The patient is seen today 06/16/2021 in follow-up on the selective care unit. He is currently resting quite comfortably in bed. Maintaining good O2 saturations in the 90s on 2 L/m per nasal cannula. Normal saline at 20 ML's per hour. He is continued on Decadron, Lovenox, vitamin supplements. White count 6.3. Hemoglobin 16.9. Sodium 135. Potassium 4.2. Creatinine 1.05. He did receive Lasix 20 mg IVP 1 today. Objective - Vital Signs Vital signs: Vital Signs Temp 97.6 F 06/16/21 11:36 Pulse 67 06/16/21 11:36 Resp 20 06/16/21 11:36 BP 128/78 06/16/21 11:36 Pulse Ox 99 06/16/21 11:36 Intake & Output 06/15/21 06/16/21 06/16/21 18:59 06:59 18:59 Intake Total 890.000 713.6 669.15 Output Total 689 812 6669 Balance 490.000 463.6 -430.85 Weight 135.5 kg Intake: Intake, IV Titration 250.000 233.6 189.15 Amount Heparin Sod,Pork in 0.45% 250.000 233.6 189.15 NaCl 25,000 unit In 0.45 % NaCl 1 250ml.bag @ 16. 9021 UNITS/KG/HR 23 mls/ hr IV .[id number] [facility] Rx#: [id number] Oral 640 480 480 Output: Urine 335 578 6433 Other: Voiding Method Urinal Urinal Urinal # Voids 1 # Bowel Movements 1 - Exam GENERAL EXAM: Alert, pleasant 55-year-old male patient, on 2 L nasal cannula, comfortable in no apparent distress. HEAD: Normocephalic. EYES: Normal reaction of pupils, equal size. NOSE: Clear with pink turbinates. THROAT: No erythema or exudates. NECK: No masses, no JVD. CHEST: No chest wall deformity. LUNGS: Equal air entry with crackles in the bilateral bases CVS: S1 and S2 normal with no audible murmur, regular rhythm. ABDOMEN: No hepatosplenomegaly, normal bowel sounds, no guarding or rigidity. SPINE: No scoliosis or deformity SKIN: No rashes CENTRAL NERVOUS SYSTEM: No focal deficits, tone is normal in all 4 extremities. EXTREMITIES: There is no peripheral edema. No clubbing, no cyanosis. Peripheral pulses are intact. - Labs CBC & Chem 7: 06/16/21 08:24 06/16/21 08:24 Labs: Abnormal Lab Results - Last 24 Hours (Table) 06/16/21 06/16/21 06/16/21 Range/Units 08:18 08:24 08:24 MCV 100.4 H (80.0-100.0) fL APTT 78.0 H (22.0-30.0) sec Sodium 135 L (137-145) mmol/L BUN 24 H (9-20) mg/dL Glucose 132 H (74-99) mg/dL Assessment and Plan Assessment: 1 Acute hypoxemic respiratory failure secondary to COVID-19 infection without significant pulmonary complaints and mild infiltrates on x-ray. Low probability for DVT per VQ scan. Negative Dopplers for DVT. 2 Elevated troponins in a patient found to have severe left ventricular systolic dysfunction with ejection fraction 20-25%. 3 transaminitis secondary to above 4 Acute renal failure 5 Chronic tobacco dependence of greater than 50 years 6 History of hypertension Plan: The patient was seen and evaluated Heparin drip was discontinued Continued on Lovenox, Decadron, vitamin supplements Titrate the FiO2 as tolerated Follow-up chest x-ray and labs in a.m. We will continue to follow I, the cosigning physician, performed a history & physical examination of the patient. Lungs sounds with crackles in the bilateral bases. Maintaining good O2 saturations in the 90s on 2 L/m per nasal cannula. I discussed the assessment and plan of care with my nurse practitioner, Tasha No. I attest to the above note as dictated by her.
--- NOTE | 2021-06-17 07:06 | XR ---
EXAMINATION TYPE: XR chest 1V portable DATE OF EXAM: 06/17/2021 COMPARISON: 06/14/2021 HISTORY: Shortness of breath TECHNIQUE: Single frontal view of the chest is obtained. FINDINGS: Subtle mild interstitial and tiny airspace infiltrates in the mid lower lung zones. The up per lung zones are clear. Heart size is normal and the pulmonary vasculature is not congested. The os seous structures are intact. There is been no significant interval change compared to previous. IMPRESSION: Mild predominantly lower lung zone infiltrates unchanged compared to previous.
--- NOTE | 2021-06-17 08:10 | P.PN ---
Subjective Progress Note Date: 06/17/21 HISTORY OF PRESENT ILLNESS: This is a 55-year-old male with a past medical history significant for hypertension but does not currently take and hypertensive medications and nicotine dependence (2 PPD). 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 We have been asked to see the patient in consultation for abnormal troponins. Patient examined at the bedside. Patient states he was diagnosed with Covid about a week ago. He did not receive the vaccine. The patient presented to the E with a chief complaint of weakness, falls, and shortness of breath. The patient denies any chest pain or pressure. Vital signs are stable. EKG revealed sinus mechanism with nonspecific ST-T wave changes. Chest xray scattered subtle multifocal ill-defined opacities, positioned within the lung bases, the left lung zone and the left suprahilar position. Correlate with clinical diagnosis of atypical pneumonia. Laboratory data: WBC 4.7. Hemoglobin 16.8. Platelet count 161. D-dimer 1.95. Sodium 137. Potassium 4.3 BUN 35. Creatinine 1.40. Lactic acid 1.6. AST 218. ALT 168. Troponins trending downward 1.190. 0.722. Echocardiogram completed revealing ejection fraction 20-25%, mild mitral regurgitation, mild tricuspid regurgitation 06/17/21: Patient seen and fully evaluated this morning. He was on 2 L O2 SpO2 of 97%. Vital signs stable with blood pressure 130/86, heart rate 68, respiratory rate of 20. Patient did have noted episode of hypertension overnight with blood pressure 154/89, we will increase lisinopril to 10 mg daily and continue to titrate as patient tolerates to optimize treatment of ischemic cardiomyopathy. He denied experiencing any chest pain, lightheadedness, dizziness, or any shortness of breath. In addition to increasing lisinopril patient to continue daily aspirin, Aldactone, metoprolol. REVIEW OF SYSTEMS: Thorough review of systems not completed secondary to limited evaluation/examination due to Covid19 PHYSICAL EXAM: Thorough physical exam not completed secondary to limited evaluation/examination due to Covid19 ASSESSMENT: Covid 19 Ischemic Cardiomyopathy with EF of 20-25% Elevated troponins, downward trend, acute coronary event ruled out Acute kidney injury Elevated d-dimer, VQ scan showing low probability for PE Acute kidney injury, resolved Transaminitis Hypertension Nicotine dependence PLAN: 2-D echo obtained and reviewed, EF of 20-25% Continuation of aspirin, metoprolol, and Aldactone. Lisinopril increased to 10 mg daily. We will continue to titrate up these medications as patient tolerates to maximize treatment for patient's ischemic cardiomyopathy. Lovenox for DVT prophylaxis Continue to Hold off on adding statin secondary to transaminitis Continue telemetry monitoring Patient will require cardiac catheterization once treatment of Covid is completed to rule out underlying coronary artery disease Further recommendations pending patient's clinical course Nurse practitioner note has been reviewed by physician. Signing provider agrees with the documented findings, assessment, and plan of care. Objective - Vital Signs Vital signs: Vital Signs Temp 98.3 F 06/16/21 20:00 Pulse 64 06/17/21 04:00 Resp 18 06/17/21 04:00 BP 154/89 06/17/21 04:00 Pulse Ox 100 06/17/21 04:00 Intake & Output 06/16/21 06/17/21 06/17/21 18:59 06:59 18:59 Intake Total 909.15 485 Output Total 1475 350 80 Balance -565.85 135 -80 Intake: Intake, IV Titration 189.15 Amount Heparin Sod,Pork in 0.45% 189.15 NaCl 25,000 unit In 0.45 % NaCl 1 250ml.bag @ 16. 9021 UNITS/KG/HR 23 mls/ hr IV .[id number] [facility] Rx#: [id number] Oral 720 485 Output: Urine 1475 350 80 Other: Voiding Method Urinal Urinal - Labs CBC & Chem 7: 06/17/21 08:36 06/17/21 08:36 Labs: Abnormal Lab Results - Last 24 Hours (Table) 06/16/21 06/16/21 06/16/21 Range/Units 08:18 08:24 08:24 MCV 100.4 H (80.0-100.0) fL APTT 78.0 H (22.0-30.0) sec Sodium 135 L (137-145) mmol/L BUN 24 H (9-20) mg/dL Glucose 132 H (74-99) mg/dL
[2021-06-17] MEDS ORDERED: lisinopriL 5 MG TAB PO SCH (09:00)
[2021-06-17 09:12] LABS: Basophils % (A) 0 %; Eosinophils # (A) 0.1 k/uL (0-0.7); Eosinophils % (A) 1 %; HCT 45.4 % (39.0-53.0); HGB 15.5 gm/dL (13.0-17.5); Lymphocytes # (A) 1.2 k/uL (1.0-4.8); Lymphocytes % (A) 14 %; MCH 33.7 pg (25.0-35.0); MCHC 34.1 g/dL (31.0-37.0); MCV 98.9 fL (80.0-100.0); Mean Platelet Volume 8.9; Monocytes # (A) 0.6 k/uL (0-1.0); Monocytes % (A) 8 %; Neutrophils # (A) 6.2 k/uL (1.3-7.7); Neutrophils % (A) 75 %; Platelet Count 235 k/uL (150-450); RDW 13.4 % (11.5-15.5); WBC 8.2 k/uL (3.8-10.6)
[2021-06-17] MEDS: ZINC SULFATE 220 MG CAP PO SCH (09:13)
[2021-06-17] MEDS: dexAMETHasone 2 MG TAB PO SCH (09:14)
[2021-06-17] MEDS: ASPIRIN 81 MG PO SCH (09:14)
[2021-06-17] MEDS: ASCORBIC ACID 500 MG TAB PO SCH (09:14)
[2021-06-17] MEDS: SPIRONOLACTONE 25 MG TAB PO SCH (09:14)
[2021-06-17] MEDS: lisinopriL 10 MG TAB PO SCH (09:14)
[2021-06-17] MEDS: METOPROLOL SUCCINATE (ER) 25 MG TAB.ER.24H PO SCH (09:14)
[2021-06-17] MEDS: CHOLECALCIFEROL 125 MCG (5000 IU) TABLET PO SCH (09:14)
[2021-06-17] MEDS: ENOXAPARIN 40 MG/0.4 ML SYRINGE SQ SCH (09:14)
[2021-06-17 09:24] LABS: C Reactive Protein 0.9 mg/dL (<1.0); Calcium 8.6 mg/dL (8.4-10.2); Magnesium 2.4 mg/dL (1.6-2.3); Potassium 4.1 mmol/L (3.5-5.1)
--- NOTE | 2021-06-17 12:09 | P.PN ---
Subjective Progress Note Date: 06/17/21 Principal diagnosis: CC: shortness of breath Patient is a 55-year-old male with a past medical history tobacco abuse and hypertension who presented to the ED with gradually worsening shortness of breath and weakness. Patient was found to have COVID-19. He was also found to have acute kidney injury. He was also found to have COVID-19. His troponin was also elevated. Patient was started on fluids and his renal function improved. Patient started on dexamethasone and multivitamins. Echocardiogram showed EF of 20-25%. Patient completed 48 hours of heparin drip. Cardiology and pulmonology following the patient. 06/17/2021: Patient is satting well on 2 L nasal cannula. He states that he is able to stand without getting short of breath. He states that he was scared because of COVID-19. I provided patient with reassurance. Objective - Vital Signs Vital signs: Vital Signs Temp 96.8 F L 06/17/21 11:40 Pulse 60 06/17/21 11:40 Resp 20 06/17/21 11:40 BP 135/88 06/17/21 11:40 Pulse Ox 97 06/17/21 11:40 Intake & Output 06/16/21 06/17/21 06/17/21 18:59 06:59 18:59 Intake Total 909.15 485 100 Output Total 1475 350 230 Balance -565.85 135 -130 Intake: Intake, IV Titration 189.15 Amount Heparin Sod,Pork in 0.45% 189.15 NaCl 25,000 unit In 0.45 % NaCl 1 250ml.bag @ 16. 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 Psych - Calm and cooperative - Labs CBC & Chem 7: 06/17/21 08:36 06/17/21 08:36 Labs: Abnormal Lab Results - Last 24 Hours (Table) 06/17/21 06/17/21 Range/Units 08:36 08:36 D-Dimer 1.95 H (<0.60) mg/L FEU Glucose 108 H (74-99) mg/dL Magnesium 2.4 H (1.6-2.3) mg/dL Lactate Dehydrogenase 1115 H (313-618) U/L Assessment and Plan Assessment: Non-ST elevation IA -Status post 48 hours heparin drip -Per cardiology patient will need a heart catheterization once he has completed treatment for COVID-19 Acute hypoxic respiratory failure multifactorial secondary to heart failure and COVID-19 -Management as below -Patient currently on 2 L nasal cannula. -Wean O2 as tolerated Newly discovered systolic heart failure -Echocardiogram showed EF of 20 to 25% -Patient started on Aldactone and lisinopril and metoprolol -Strict I's and O's and daily weight -See above for ischemic workup -Patient will need a LifeVest prior to discharge COVID-19 -Resume dexamethasone -Patient currently on Lovenox -Resume multivitamins -Elevated d-dimer ->VQ scan low probability for PE and lower extremity Dopplers negative for DVT -Pulmonology following Acute kidney injury -Resolved with fluids DVT prophylaxis Heparin infusion CODE STATUS: full code Anticipation discharge date: 2-[address]: Home
--- NOTE | 2021-06-17 13:49 | P.PN ---
Subjective Progress Note Date: 06/17/21 This is a pleasant 55-year-old male patient with no current primary care provider. No current home medications. He does have a history of 40 years up to 2 packs per day smoking history. He had presented to the emergency room yesterday with a one to two-week history of cough congestion shortness of shannan th. He states he was diagnosed with CoVID 19 on 06/09/2020 and his symptoms have gradually gotten worse. He's been quite weak. Poor appetite. Chest x-ray reveals scattered subtle multifocal ill-defined opacities bilaterally. Echocardiogram revealed severely impaired left ventricular systolic function with ejection fraction 20-25%. Doppler of the lower extremity revealed no evidence of DVT. VQ scan revealed low probability for PE. EKG revealed nonspecific ST and T wave abnormalities. Troponins 1.19, 0.72, 0.66. WBC 4.7. Hemoglobin 16.8. Lymphocytes 0.6. D-dimer 1.95. Sodium 137. Potassium 4.3. Creatinine 1.4. Glucose 148. AST 218. ALT 168. He is seen today in consultation on the selective care unit. He is currently sitting up at the bedside. Awake and alert in no acute distress. He denies any worsening shortness of breath, cough or congestion. No chest pain. No hemoptysis. He's been initiated on a heparin drip. 0.9 normal saying at 20 mls per hour. The patient is seen today 06/16/2021 in follow-up on the selective care unit. He is currently resting quite comfortably in bed. Maintaining good O2 saturations in the 90s on 2 L/m per nasal cannula. Normal saline at 20 ML's per hour. He is continued on Decadron, Lovenox, vitamin supplements. White count 6.3. Hemoglobin 16.9. Sodium 135. Potassium 4.2. Creatinine 1.05. He did receive Lasix 20 mg IVP 1 today. The patient is seen today 06/17/2021 in follow-up on the selective care unit. He is currently resting comfortably in bed. Awake and alert in no acute distress. Maintaining O2 saturation in the 90s on 2 L/m per nasal cannula. Plain a #20 ML's per hour. No complaints of worsening shortness of breath, cough or congestion. His x-ray reveals mild interstitial and tiny airspace infiltrates, lower lung zones. Upper lungs are clear. White count 8.2. Hemoglobin 15.5. D-dimer 1.95. Sodium 137. Potassium 4.1. Creatinine 1.12. Glucose 108. LDH 1115. C-reactive protein 0.9. He is continued on Decadron, Lovenox, vitamin supplements. Objective - Vital Signs Vital signs: Vital Signs Temp 96.8 F L 06/17/21 11:40 Pulse 60 06/17/21 11:40 Resp 20 06/17/21 11:40 BP 135/88 06/17/21 11:40 Pulse Ox 97 06/17/21 11:40 Intake & Output 06/16/21 06/17/21 06/17/21 18:59 06:59 18:59 Intake Total 909.15 485 218 Output Total 1475 350 230 Balance -565.85 135 -12 Intake: Intake, IV Titration 189.15 Amount Heparin Sod,Pork in 0.45% 189.15 NaCl 25,000 unit In 0.45 % NaCl 1 250ml.bag @ 16. 9021 UNITS/KG/HR 23 mls/ hr IV .[id number] [facility] Rx#: [id number] Oral 720 485 218 Output: Urine 1475 350 230 Other: Voiding Method Urinal Urinal - Exam GENERAL EXAM: Alert, pleasant 55-year-old male patient, on 2 L nasal cannula, comfortable in no apparent distress. HEAD: Normocephalic. EYES: Normal reaction of pupils, equal size. NOSE: Clear with pink turbinates. THROAT: No erythema or exudates. NECK: No masses, no JVD. CHEST: No chest wall deformity. LUNGS: Equal air entry with crackles in the bilateral bases CVS: S1 and S2 normal with no audible murmur, regular rhythm. ABDOMEN: No hepatosplenomegaly, normal bowel sounds, no guarding or rigidity. SPINE: No scoliosis or deformity SKIN: No rashes CENTRAL NERVOUS SYSTEM: No focal deficits, tone is normal in all 4 extremities. EXTREMITIES: There is no peripheral edema. No clubbing, no cyanosis. Peripheral pulses are intact. - Labs CBC & Chem 7: 06/17/21 08:36 06/17/21 08:36 Labs: Abnormal Lab Results - Last 24 Hours (Table) 01/30/22 01/30/22 Range/Units 08:36 08:36 D-Dimer 1.95 H (<0.60) mg/L FEU Glucose 108 H (74-99) mg/dL Magnesium 2.4 H (1.6-2.3) mg/dL Lactate Dehydrogenase 1115 H (313-618) U/L Assessment and Plan Assessment: 1 Acute hypoxemic respiratory failure secondary to COVID-19 infection without significant pulmonary complaints and mild infiltrates on x-ray. Low probability for DVT per VQ scan. Negative Dopplers for DVT. 2 Elevated troponins in a patient found to have severe left ventricular systolic dysfunction with ejection fraction 20-25%. 3 Transaminitis secondary to above 4 Acute renal failure 5 Chronic tobacco dependence of greater than 50 years 6 History of hypertension Plan: The patient was seen and evaluated Chest x-ray and labs reviewed Continued on Lovenox, Decadron, vitamin supplements Titrate down the FiO2 as tolerated The plan is for cardiac catheterization once cleared of CoVID If plan is for outpatient cath, he is cleared for discharge from pulmonary I, the cosigning physician, performed a history & physical examination of the patient. Lungs sounds with crackles in the bilateral bases. Maintaining good O2 saturations in the 90s on 2 L/m per nasal cannula. I discussed the assessment and plan of care with my nurse practitioner, Tasha No. I attest to the above note as dictated by her.
[2021-06-18 04:15] VITALS: RESP 18
[2021-06-18 08:05] LABS: HCT 50.8 % (39.0-53.0); HGB 16.9 gm/dL (13.0-17.5); MCH 33.8 pg (25.0-35.0); MCHC 33.3 g/dL (31.0-37.0); MCV 101.3 fL (80.0-100.0); Macrocytosis Slight; Mean Platelet Volume 8.6; Platelet Count 286 k/uL (150-450); RBC 5.01 m/uL (4.30-5.90); RDW 13.7 % (11.5-15.5); WBC 7.6 k/uL (3.8-10.6)
[2021-06-18 08:24] LABS: Calcium 9.1 mg/dL (8.4-10.2); Magnesium 2.3 mg/dL (1.6-2.3); Potassium 4.6 mmol/L (3.5-5.1)
[2021-06-18 09:51] LABS: ALT 196 U/L (4-49); AST 168 U/L (17-59)
[2021-06-18] MEDS: METOPROLOL SUCCINATE (ER) 25 MG TAB.ER.24H PO SCH (10:10)
[2021-06-18] MEDS: ASCORBIC ACID 500 MG TAB PO SCH (10:10)
[2021-06-18] MEDS: CHOLECALCIFEROL 125 MCG (5000 IU) TABLET PO SCH (10:10)
[2021-06-18] MEDS: dexAMETHasone 2 MG TAB PO SCH (10:10)
[2021-06-18] MEDS: ASPIRIN 81 MG PO SCH (10:10)
[2021-06-18] MEDS: ENOXAPARIN 40 MG/0.4 ML SYRINGE SQ SCH (10:10)
[2021-06-18] MEDS: SPIRONOLACTONE 25 MG TAB PO SCH (10:10)
[2021-06-18] MEDS: lisinopriL 10 MG TAB PO SCH (10:11)
[2021-06-18] MEDS: ZINC SULFATE 220 MG CAP PO SCH (10:11)
[2021-06-18] MEDS ORDERED: METOPROLOL SUCCINATE (ER) 25 MG TAB.ER.24H PO STA (11:18)
--- NOTE | 2021-06-18 12:53 | P.PN ---
Subjective Progress Note Date: 06/18/21 HISTORY OF PRESENT ILLNESS: This is a 55-year-old male with a past medical history significant for hypertension but does not currently take and hypertensive medications and nicotine dependence (2 PPD). 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 We have been asked to see the patient in consultation for abnormal troponins. Patient examined at the bedside. Patient states he was diagnosed with Covid about a week ago. He did not receive the vaccine. The patient presented to the E with a chief complaint of weakness, falls, and shortness of breath. The patient denies any chest pain or pressure. Vital signs are stable. EKG reveals sinus mechanism with nonspecific ST-T wave changes Chest xray scattered subtle multifocal ill-defined opacities, positioned within the lung bases, the left lung zone and the left suprahilar position. Correlate with clinical diagnosis of atypical pneumonia. Laboratory data: WBC 4.7. Hemoglobin 16.8. Platelet count 161. D-dimer 1.95. Sodium 137. Potassium 4.3 BUN 35. Creatinine 1.40. Lactic acid 1.6. AST 218. ALT 168. Troponin 1.190. 0.722 Current home cardiac medications include none Echocardiogram completed revealing ejection fraction 20-25%, mild mitral regurgitation, mild tricuspid regurgitation 06/18/2021 Patient examined this morning at the bedside. Patient denies chest pain or pressure. Denies SOB. Telemetry reveals sinus mechanism. Vital signs are stable. PHYSICAL EXAM: Thorough physical exam not completed secondary to limited evaluation/examination due to Covid19 ASSESSMENT: Covid 19 Cardiomyopathy, etiology unclear Abnormal troponins, etiology unclear, rule out underlying coronary artery disease Acute kidney injury Elevated d-dimer, rule out PE Acute kidney injury, resolved Transaminitis Hypertension Nicotine dependence PLAN: Continue current cardiac medications Increase metoprolol to 50mg daily Hold off on adding statin secondary to transaminitis Patient will require cardiac catheterization in the future to rule out underlying coronary artery disease No lifevest at the time of discharge per Dr. Dupree Further recommendations pain patient course Nurse practitioner note has been reviewed by physician. Signing provider agrees with the documented findings, assessment, and plan of care. Objective - Vital Signs Vital signs: Vital Signs Temp 96.8 F L 06/18/21 04:00 Pulse 66 06/18/21 04:00 Resp 18 06/18/21 04:00 BP 124/72 06/18/21 04:00 Pulse Ox 98 06/18/21 04:00 Intake & Output 06/17/21 06/18/21 06/18/21 18:59 06:59 18:59 Intake Total 218 480 0 Output Total 405 475 Balance -187 5 0 Intake: Oral 218 480 0 Output: Urine 405 475 - Labs CBC & Chem 7: 06/18/21 06:41 06/18/21 06:41 Labs: Abnormal Lab Results - Last 24 Hours (Table) 06/18/21 06/18/21 06/18/21 Range/Units 06:41 06:41 06:41 MCV 101.3 H (80.0-100.0) fL BUN 21 H (9-20) mg/dL AST 168 H (17-59) U/L ALT 196 H (4-49) U/L
[2021-06-18 13:35] VITALS: BMI 38.3
--- NOTE | 2021-06-18 13:37 | CDI ---
Documentation Clarification Form Date: 06/18/2021 01:13:19 PM From: Alana Gutiérrez RN, CCDS Admit Date: 06/14/2021 10:51:00 PM Patient Name: Abelardo Hernandez Visit Number: [id number] Discharge Date: ATTENTION: The Clinical Documentation Specialists (CDI) and [facility] Coding Staff appreciate your assistance in clarifying documentation. Please respond to the clarification below the line at the bottom and electronically sign. The CDI & [facility] Coding staff will review the response and follow-up if needed. Please note: Queries are made part of the Legal Health Record. If you have any questions, please contact the author of this message via ITS. Dr. Ana German Your patient has the documented diagnosis of newly discovered systolic heart failure in progress note starting on 06/16/21. . Additional information regarding the acuity] of heart failure is requested. History/Risk Factors: Covid-19, Hypertension, Current smoker Clinical Indicators: 55-year-old male present with dyspnea, abnormal CXR, CT. ruled in for COVID-19. ECHO found ischemic cardiomyopathy. 06/14 VS/Pulse OX: 129/89 91 24 98.9 91 % RA 06/15 Echocardiogram Results: EF of 20-25 % 06/14 Chest X Ray: scattered subtle multifocal ill-defined opacities, per pulmonary consult on 06/16/21. Treatment: Telemetry monitoring Strict I's and O's and daily weight Toprol XL 50 MG PO Daily Aldactone 25 MG PO Daily Lasix 20 MG IV Once In your professional opinion, can you please clarify the acuity of heart failure if known? [ X ] Acute Systolic Heart Failure (reduced EF) [ ] Chronic Systolic Heart Failure (reduced EF) [ ] Other, please specify [ ] Unable to determine (Template Last Revised: June 2020) MTDD
--- NOTE | 2021-06-18 14:06 | P.PN ---
Subjective Progress Note Date: 06/18/21 55-year-old male patient, a chronic smoker who came into the hospital because of cough and congestion and shortness of breath a few weeks duration. The patient was diagnosed having COVID 19 06/09/2021. Chest x-ray showed scattered subtle multifocal ill-defined but the pulmonary infiltrates consistent with COVID 19. The patient is also known to have CHF and echocardiogram showed severe impairment of the function with an ejection fraction of 20-25%. Doppler of the lower extremity is were negative. VQ scan was of a low probability. The patient had some troponin leak with a maximum troponin level of 1.19. The patient is currently on Decadron. He is on multivitamins. He is on Lovenox for prophylaxis. IV fluids are currently at KVO. Most recent LDH level was 1115 with a CRP of 0.9. His d-dimer is at 1.95. He is feeling well. Is on 2 L about 2 by nasal cannula with a pulse of 78%. He is afebrile. Blood work today shows a white cell count of 7.6 with a hemoglobin 16.9 and a platelet count of 286. BUN is at 21 with a creatinine of 1.1. Sodium is at 138. AST and ALP are both elevated at 168 and 196 respectively 2. The patient remains on Decadron 6 mg by mouth on a daily basis. Objective - Vital Signs Vital signs: Vital Signs Temp 96.8 F L 06/18/21 04:00 Pulse 66 06/18/21 04:00 Resp 18 06/18/21 04:00 BP 124/72 06/18/21 04:00 Pulse Ox 98 06/18/21 04:00 Intake & Output 06/17/21 06/18/21 06/18/21 18:59 06:59 18:59 Intake Total 218 480 240 Output Total 405 475 Balance -187 5 240 Weight 135.5 kg Intake: Oral 218 480 240 Output: Urine 405 475 - Exam GENERAL EXAM: Alert, pleasant 55-year-old male patient, on 2 L nasal cannula, comfortable in no apparent distress. HEAD: Normocephalic. EYES: Normal reaction of pupils, equal size. NOSE: Clear with pink turbinates. THROAT: No erythema or exudates. NECK: No masses, no JVD. CHEST: No chest wall deformity. LUNGS: Equal air entry with crackles in the bilateral bases CVS: S1 and S2 normal with no audible murmur, regular rhythm. ABDOMEN: No hepatosplenomegaly, normal bowel sounds, no guarding or rigidity. SPINE: No scoliosis or deformity SKIN: No rashes CENTRAL NERVOUS SYSTEM: No focal deficits, tone is normal in all 4 extremities. EXTREMITIES: There is no peripheral edema. No clubbing, no cyanosis. Peripheral pulses are intact. - Labs CBC & Chem 7: 06/18/21 06:41 06/18/21 06:41 Labs: Abnormal Lab Results - Last 24 Hours (Table) 06/18/21 06/18/21 06/18/21 Range/Units 06:41 06:41 06:41 MCV 101.3 H (80.0-100.0) fL BUN 21 H (9-20) mg/dL AST 168 H (17-59) U/L ALT 196 H (4-49) U/L Assessment and Plan Plan: 1 Acute hypoxemic respiratory failure secondary to COVID-19 infection without significant pulmonary complaints and mild infiltrates on x-ray. Low probability for DVT per VQ scan. Negative Dopplers for DVT. Clinically improved and the patient is currently on 2 L of oxygen by nasal cannula. 2 CHF with systolic heart failure with ejection fraction of 20-25% 3 acute non-STEMI 4 abnormal LFTs/transaminitis secondary to COVID 19 5 acute kidney injury, recovered and the creatinine is down to 1.1 6 COPD 7 hypertension 8 history of chronic smoking 9 obesity with a BMI of 38.4 Plan Continue current treatment Continue Decadron 6 mg by mouth daily basis Cardiac catheterization per cardiology Metoprolol dose has been adjusted by cardiology Monitor renal function We'll continue to follow
--- NOTE | 2021-06-18 15:40 | P.DS ---
Providers Date of admission: 06/14/21 22:51 Expected date of discharge: 06/18/21 Attending physician: Donovan Mcmillan MD Consults: 06/14/21 23:00 Consult Physician Routine Consulting Provider: Fran Stauffer Consult Reason/Comments: Elevated d-dimer, Covid Do you want consulting provider notified?: Yes Consult Physician Routine Consulting Provider: Taiwo Busch Consult Reason/Comments: Elevated troponin, Covid, elevated d-dimer Do you want consulting provider notified?: Yes Primary care physician: Stated None Hospital Course: Discharge Diagnosis: Non-ST elevation ND Acute hypoxic respiratory failure multifactorial secondary to heart failure COVID-19 Newly discovered systolic heart failure COVID-19 Acute kidney injury Hospital Course: Patient is a 55-year-old male with a past medical history of tobacco abuse who presents to the ED with cough and congestion. Patient was found to have COVID- 19. He is also found to have acute kidney injury. His troponins were elevated. Patient was started on fluids and his creatinine improved. Patient was also started on dexamethasone and multivitamins for his COVID-19. Patient had elevated d-dimer. He had a VQ scan that was low probability for PE and he also had lower extremity Dopplers are negative for DVT. Patient was started on a heparin drip for the elevated troponin. Echocardiogram showed EF of 20-25%. Patient completed 48 hours of heparin drip. He was started on metoprolol, lisinopril, aspirin, statin and Aldactone. At the time of discharge patient was euvolemic. He had home O2 evaluation done and ambulated well on room air. Patient was seen by cardiology service who cleared for discharge. They recommended outpatient heart catheterization once COVID-19 is resolved. They also recommended no LifeVest on discharge. Patient is also cleared for discharge by pulmonology. Since patient is satting well on room air he does not need to complete his course of dexamethasone. Patient deemed stable for discharge. He was instructed to follow closely with cardiology. I also counseled him on this medication compliance. 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 Patient Condition at Discharge: Poor Plan - Discharge Summary Discharge Rx Participant: No New Discharge Prescriptions: New RX: Spironolactone [Aldactone] 25 mg PO DAILY #30 tab RX: Aspirin 81 mg PO DAILY #30 tab RX: Metoprolol Succinate (ER) [Toprol XL] 50 mg PO DAILY #30 tab RX: lisinopriL [Zestril] 10 mg PO DAILY 30 Days #30 tab Discharge Medication List RX: Aspirin 81 mg PO DAILY #30 tab 06/18/21 [Rx] RX: Metoprolol Succinate (ER) [Toprol XL] 50 mg PO DAILY #30 tab 06/18/21 [Rx] RX: Spironolactone [Aldactone] 25 mg PO DAILY #30 tab 06/18/21 [Rx] RX: lisinopriL [Zestril] 10 mg PO DAILY 30 Days #30 tab 06/18/21 [Rx] Follow up Appointment(s)/Referral(s): Taiwo Busch MD [STAFF PHYSICIAN] - 1 Week [facility], [NON-STAFF] - None,Stated [Primary Care Provider] - 1-2 days Activity/Diet/Wound Care/Special Instructions: Walker to be delivered prior to discharge - order sent to [facility]. Discharge Disposition: HOME WITH HOME HEALTH SERVICES
[2021-06-18 15:54] VITALS: BP 145/73; PULSE 77; TEMP 96
[2021-06-19] MEDS ORDERED: METOPROLOL SUCCINATE (ER) 50 MG TAB.ER.24H PO SCH (09:00)
== END 2021-06-18 17:15 | disposition home health service (06) | DRG 177 ==
LOC: EC 19:14 → 3SCARD 22:51
PROVIDERS: ADMIT Internal Medicine; ATTEND Internal Medicine
DX: U07.1 COVID-19 (principal); I50.21 Acute systolic (congestive) heart failure; J96.01 Acute respiratory failure with hypoxia; J12.82 Pneumonia due to coronavirus disease 2019; I21.4 Non-ST elevation (NSTEMI) myocardial infarction; N17.9 Acute kidney failure, unspecified; I11.0 Hypertensive heart disease with heart failure; I08.1 Rheumatic disorders of both mitral and tricuspid valves; L91.8 Other hypertrophic disorders of the skin; I25.5 Ischemic cardiomyopathy; R74.01 Elevation of levels of liver transaminase levels; F17.210 Nicotine dependence, cigarettes, uncomplicated; Z71.6 Tobacco abuse counseling; Z82.0 Family history of epilepsy and other diseases of the nervous system
CPT/HCPCS: 36415; 71045; 71046; 78580; 80048; 80053; 83605; 83615; 83735; 84450; 84460; 84484; 85025; 85027; 85379; 85610; 85730; 86140; 93005; 93306; 93970; 94640; 96361; 96365; 96366; 96375; 99285

== ENCOUNTER 2021-06-19 14:33 | Inpatient (IN) | payer BC ==
--- NOTE | 2021-06-19 14:53 | ED ---
General Adult HPI - General Stated complaint: stroke symptoms Time Seen by Provider: 06/19/21 14:34 Source: patient, EMS, RN notes reviewed Mode of arrival: EMS Limitations: no limitations - History of Present Illness Initial comments: Patient is a pleasant 55-year-old male presenting to the emergency department with right-sided weakness. Patient was just discharged from the hospital yesterday with COVID-19 infection. Patient was finally went to bed, sometime between 11 and 12. Patient woke up this morning feeling more weak. Patient did have a fall however denies any significant injury. Patient states his head gently touched the ground. Patient has had weakness persistent since he woke up this morning. Patient has not noticed where the weakness is mostly present. Patient denies any confusion. - Related Data Previous Rx's Medication Instructions Recorded Aspirin 81 mg PO DAILY #30 tab 06/18/21 Metoprolol Succinate (ER) [Toprol 50 mg PO DAILY #30 tab 06/18/21 XL] Spironolactone [Aldactone] 25 mg PO DAILY #30 tab 06/18/21 lisinopriL [Zestril] 10 mg PO DAILY 30 Days #30 tab 06/18/21 Allergies Allergy/AdvReac Type Severity Reaction Status Date / Time No Known Allergies Allergy Verified 06/19/21 15:56 Review of Systems ROS Statement: Those systems with pertinent positive or pertinent negative responses have been documented in the HPI. ROS Other: All systems not noted in ROS Statement are negative. Constitutional: Denies: fever Eyes: Denies: eye pain ENT: Denies: ear pain Respiratory: Denies: cough Cardiovascular: Denies: chest pain Endocrine: Denies: fatigue Gastrointestinal: Denies: vomiting Genitourinary: Denies: dysuria Musculoskeletal: Denies: back pain Skin: Denies: rash Neurological: Reports: weakness. Denies: headache, confusion Past Medical History Past Medical History: Hypertension Additional Past Medical History / Comment(s): covid 06/08/21 History of Any Multi-Drug Resistant Organisms: None Reported Past Surgical History: No Surgical Hx Reported Past Anesthesia/Blood Transfusion Reactions: No Reported Reaction Past Psychological History: No Psychological Hx Reported Smoking Status: Former smoker Past Alcohol Use History: None Reported Additional Past Alcohol Use History / Comment(s): Pt reports previous history of heavy alcohol use. Also reports prior to being covid positive pt smoked two packs a day Past Drug Use History: None Reported - Past Family History Father Family Medical History: No Reported History Mother Family Medical History: Neurologic Disorder Additional Family Medical History / Comment(s): MS General Exam Limitations: no limitations General appearance: alert, in no apparent distress Head exam: Present: normocephalic Eye exam: Present: normal appearance, PERRL, EOMI, other (Skin tag right upper eyelid) ENT exam: Present: normal oropharynx Neck exam: Present: normal inspection Respiratory exam: Present: normal lung sounds bilaterally Cardiovascular Exam: Present: regular rate, normal rhythm GI/Abdominal exam: Present: soft. Absent: tenderness Extremities exam: Present: normal inspection Neurological exam: Present: alert, oriented X3 Expanded Speech: Present: fluid speech Cranial nerves: EOM's Intact: Normal, Facial Palsy with Forehead Movement: Abnormal Right (Patient is able to move forehead) Sensory exam: Upper Extremity Light Touch: Normal, Lower Extremity Light Touch: Normal Motor strength exam: RUE: 4, LUE: 5, RLE: 3, LLE: 5 Eye Response: (4) open spontaneously Motor Response: (6) obeys commands Verbal Response: (5) oriented Psychiatric exam: Present: normal affect, normal mood Skin exam: Present: normal color Course Vital Signs 06/19/21 14:46 Temperature 97 F L Pulse Rate 86 Respiratory 18 Rate Blood Pressure 140/77 O2 Sat by Pulse 88 L Oximetry - Reevaluation(s) Reevaluation #1: 06/19/21 14:48 Last known well is 11 PM yesterday, greater than 4.5 hours and therefore patient is not a candidate for TPA. Code stroke was called. 06/19/21 15:[address] george, who will admit. EKG Findings - EKG Comments: EKG Findings:: Sinus rhythm with rate of 79. [place] 146. QRS 138. QT 420. QTc 481. Normal axis. PVC present. Nonspecific intraventricular conduction delay. Inverted T-wave in V6. Medical Decision Making - Medical Decision Making Case was earlier discussed with neurology Dr. Angelo who agrees patient does not need TPA. Patient reevaluated and unchanged. Patient updated on results and plan. [facility] has been paged for admission of patient they had recently admitted. - Lab Data Result diagrams: 06/19/21 14:39 06/19/21 14:39 Lab Results 06/19/21 06/19/21 06/19/21 Range/Units 14:39 14:39 14:39 WBC 7.6 (3.8-10.6) k/uL RBC 4.84 (4.30-5.90) m/uL Hgb 16.5 (13.0-17.5) gm/dL Hct 48.0 (39.0-53.0) % MCV 99.2 (80.0-100.0) fL MCH 34.1 (25.0-35.0) pg MCHC 34.4 (31.0-37.0) g/dL RDW 13.4 (11.5-15.5) % Plt Count 312 (150-450) k/uL MPV 7.9 Neutrophils % 74 % Lymphocytes % 14 % Monocytes % 8 % Eosinophils % 1 % Basophils % 1 % Neutrophils # 5.6 (1.3-7.7) k/uL Lymphocytes # 1.0 (1.0-4.8) k/uL Monocytes # 0.6 (0-1.0) k/uL Eosinophils # 0.1 (0-0.7) k/uL Basophils # 0.0 (0-0.2) k/uL Sodium 139 (137-145) mmol/L Potassium 4.2 (3.5-5.1) mmol/L Chloride 107 (98-107) mmol/L Carbon Dioxide 24 (22-30) mmol/L Anion Gap 8 mmol/L BUN 24 H (9-20) mg/dL Creatinine 1.12 (0.66-1.25) mg/dL Est GFR (CKD-EPI)AfAm 85 (>60 ml/min/1.73 sqM) Est GFR (CKD-EPI)NonAf 74 (>60 ml/min/1.73 sqM) Glucose 120 H (74-99) mg/dL Calcium 9.3 (8.4-10.2) mg/dL Total Bilirubin 2.1 H (0.2-1.3) mg/dL AST 152 H (17-59) U/L ALT 227 H (4-49) U/L Alkaline Phosphatase 73 (38-126) U/L Troponin I 0.109 H* (0.000-0.034) ng/mL Total Protein 6.7 (6.3-8.2) g/dL Albumin 3.6 (3.5-5.0) g/dL - Radiology Data Radiology results: report reviewed (CT and CTA revealed no acute process) Disposition Clinical Impression: Cerebrovascular accident (CVA) Disposition: ADMITTED IP TO THIS HOSP Is patient prescribed a controlled substance at d/c from ED?: No Referrals: None,Stated [Primary Care Provider] - 1-2 days Decision Time: 15:52
[2021-06-19 14:55] LABS: Basophils % (A) 1 %; Eosinophils # (A) 0.1 k/uL (0-0.7); Eosinophils % (A) 1 %; HGB 16.5 gm/dL (13.0-17.5); Lymphocytes % (A) 14 %; MCH 34.1 pg (25.0-35.0); MCHC 34.4 g/dL (31.0-37.0); MCV 99.2 fL (80.0-100.0); Mean Platelet Volume 7.9; Monocytes # (A) 0.6 k/uL (0-1.0); Monocytes % (A) 8 %; Neutrophils # (A) 5.6 k/uL (1.3-7.7); Neutrophils % (A) 74 %; Platelet Count 312 k/uL (150-450); RBC 4.84 m/uL (4.30-5.90); RDW 13.4 % (11.5-15.5); WBC 7.6 k/uL (3.8-10.6)
[2021-06-19 15:05] LABS: Albumin 3.6 g/dL (3.5-5.0); Calcium 9.3 mg/dL (8.4-10.2); Potassium 4.2 mmol/L (3.5-5.1); Total Bilirubin 2.1 mg/dL (0.2-1.3); Total Protein 6.7 g/dL (6.3-8.2)
--- NOTE | 2021-06-19 15:07 | CT ---
EXAMINATION TYPE: CT brain wo con for TPA DATE OF EXAM: 06/19/2021 COMPARISON: none HISTORY: Right sided facial droop and weakness. CT DLP: 1156.[address] of the brain was performed. The ventricles, basal cisterns and sulci overlying the cerebral convexities demonstrate mild enlargem ent. There is no evidence for intracranial hemorrhage or sulcal effacement. There is decreased attenuation about the periventricular white matter and deep white matter of both c erebral hemispheres, compatible with chronic small vessel ischemia. Differential diagnosis does inclu de demyelination. No mass effects are seen.No midline shift. Osseous calvarium is intact. If symptoms persist consider MRI. IMPRESSION: 1. Age related atrophic and chronic small vessel ischemic change without acute intracranial process s een at this time.
--- NOTE | 2021-06-19 15:18 | CT ---
EXAMINATION TYPE: CT angio head neck DATE OF EXAM: 06/19/2021 COMPARISON: None HISTORY: Right sided facial droop and weakness. CT DLP: 680.1 mGycm CONTRAST: Performed with IV Contrast, patient injected with 65 mL of Isovue 370. Combination Contrast CTA cervical carotids and [place] of [place] CTA cervical carotids with 3-D recons truction Contrast CTA of the cervical carotids was performed 3-D reconstruction imaging obtained at a separate workstation. Right carotid system: Mild plaque is seen of the right common carotid artery. There is mild plaque a lso noted at the carotid bulb and proximal ICA. No significant diameter reduction. ECA is patent. Right vertebral artery appears unremarkable. Left carotid system: Mild plaque is seen of the left common carotid artery. There is mild plaque als o noted at the carotid bulb and proximal ICA. No significant diameter reduction. ECA is patent. Lef t vertebral artery appears unremarkable. IMPRESSION: 1. No significant diameter reduction to account for the patient's symptoms. CTA kiana of Garcia with 3-D reconstruction Contrast CTA of the kiana of Garcia was performed 3-D reconstruction imaging obtained at a separate workstation. Vertebrobasilar system as well as intracranial portions of the internal carotid arteries and their ma sabiha tributaries are patent. I do not see evidence for sizable aneurysm or vascular malformation. Pl ease note MRI provides greater sensitivity and specificity. Visualized brain appears grossly unremar kable. IMPRESSION: 1. No significant abnormality. NASCET criteria was used in interpretation of this exam?
[2021-06-19 15:27] LABS: Prothrombin Time 11.1 sec (9.0-12.0)
--- NOTE | 2021-06-19 15:42 | XR ---
EXAMINATION TYPE: XR chest 1V portable DATE OF EXAM: 06/19/2021 HISTORY: Shortness of breath. COMPARISON: 06/17/21 TECHNIQUE: Single view of the chest is submitted. FINDINGS: Demonstrated are scattered senescent parenchymal change. Patchy density right medial lung base may reflect developing pneumonia. Correlate clinically. The heart is stable. Hilar and mediastinal structures are within normal limits. Degenerative changes are seen of the dorsal spine. IMPRESSION: 1. Patchy density right medial lung base may reflect developing pneumonia. Correlate clinically.
[2021-06-19] MEDS ORDERED: ASPIRIN 325 MG TAB PO STA (15:52)
[2021-06-19] MEDS ORDERED: MAG HYDROX/AL HYDROX/SIMETH 30 ML CUP PO PRN (16:09)
[2021-06-19] MEDS ORDERED: ACETAMINOPHEN TAB 325 MG TAB PO PRN (16:09)
[2021-06-19] MEDS ORDERED: LOPERAMIDE 2 MG CAP PO PRN (16:09)
[2021-06-19] MEDS ORDERED: ONDANSETRON 4 MG/2 ML VIAL IVP PRN (16:09)
[2021-06-19] MEDS ORDERED: NALOXONE 0.4 MG/ML 1 ML VIAL IV PRN (16:09)
[2021-06-19 16:14] LABS: Partial Thromboplastin Time 19.1 sec (22.0-30.0)
--- NOTE | 2021-06-19 16:15 | P.HPIM ---
History of Present Illness H&P Date: 06/19/21 55-year-old male with past medical history of hypertension recent Covid diagnoses we'll just recently discharged from the hospital admitted to the hospital for right sided weakness mainly facial weakness that started this a.m. the patient woke up with weakness Patient still have right facial weakness Denies any chest pain or shortness of breath Review of systems and systems has been reviewed all negative and positive findings as per history of present illness Constitutional: No acute distress, conversant, pleasant Eyes: Anicteric sclerae, moist conjunctiva, no lid-lag PERRLA ENMT: NC/AT Oropharynx clear, no erythema, exudates Neck: Supple, FROM, no masses, or JVD No carotid bruits No thyromegaly Lungs: Clear to auscultation Clear to percussion Normal respiratory effort, no accessory muscle use Cardiovascular: Heart regular in rate and rhythm, No murmurs, gallops, or rubs No peripheral edema Abdominal: Soft Nontender, no guarding, rebound or rigidity Abdomen moving with respiration Normoactive bowel sounds No hepatomegaly, No splenomegaly No palpable mass No abdominal wall hernia noted Skin: Normal temperature, tone, texture, turgor No induration No subcutaneous nodules No rash, lesions No ulcers Extremities: No digital cyanosis No clubbing Pedal pulses intact and symmetrical Radial pulses intact and symmetrical Normal gait and station No calf tenderness Psychiatric:Alert and oriented to person, place and time Appropriate affect Intact judgement Neuro: Generalized weakness Right facial weakness Right facial weakness CVA suspected patient out of the therapeutic window for TPA we'll check MRI of the brain will consult neurology Patient has been started on aspirin Hypertension COVID-19 infection Past Medical History Past Medical History: Hypertension Additional Past Medical History / Comment(s): covid 06/08/21 History of Any Multi-Drug Resistant Organisms: None Reported Past Surgical History: No Surgical Hx Reported Past Anesthesia/Blood Transfusion Reactions: No Reported Reaction Past Psychological History: No Psychological Hx Reported Smoking Status: Former smoker Past Alcohol Use History: None Reported Additional Past Alcohol Use History / Comment(s): Pt reports previous history of heavy alcohol use. Also reports prior to being covid positive pt smoked two packs a day Past Drug Use History: None Reported - Past Family History Father Family Medical History: No Reported History Mother Family Medical History: Neurologic Disorder Additional Family Medical History / Comment(s): MS Medications and Allergies Home Medications Medication Instructions Recorded Confirmed Type Aspirin 81 mg PO DAILY #30 tab 06/18/21 06/19/21 Rx Metoprolol Succinate (ER) [Toprol 50 mg PO DAILY #30 tab 06/18/21 06/19/21 Rx XL] Spironolactone [Aldactone] 25 mg PO DAILY #30 tab 06/18/21 06/19/21 Rx lisinopriL [Zestril] 10 mg PO DAILY 30 Days #30 tab 06/18/21 06/19/21 Rx Allergies Allergy/AdvReac Type Severity Reaction Status Date / Time No Known Allergies Allergy Verified 06/19/21 15:56 Physical Exam Vitals: Vital Signs Temp Pulse Resp BP Pulse Ox 06/19/21 14:46 97 F L 86 18 140/77 88 L Intake and Output 06/19/21 06/19/21 06/19/21 06:59 14:59 22:59 Other: Weight 136.078 kg Results CBC & Chem 7: 06/19/21 14:39 06/19/21 14:39 Labs: Abnormal Lab Results - Last 24 Hours (Table) 06/19/21 06/19/21 Range/Units 14:39 14:39 BUN 24 H (9-20) mg/dL Glucose 120 H (74-99) mg/dL Total Bilirubin 2.1 H (0.2-1.3) mg/dL AST 152 H (17-59) U/L ALT 227 H (4-49) U/L Troponin I 0.109 H* (0.000-0.034) ng/mL
[2021-06-19] MEDS ORDERED: ATORVASTATIN 80 MG TAB PO STA (16:43)
--- NOTE | 2021-06-19 17:09 | P.CNNES ---
History of Present Illness Consult date: 06/19/21 Requesting physician: Mateo Fried Reason for Consult: cva History of Present Illness: This is a 55-year-old gentleman with medical history of hypertension who is non- compliant with medication, recent covid-19 (may 09, 2021), recent non-ST elevation [place], recent acute hypoxic respiratory failure due to COVID-19, newly diagnosed systolic heart failure with ejection fraction of 20-25%, acute kidney injury, tobacco use, remote alcohol use who presented emergency department on 06/19/2021 for right facial and right-sided weakness. Patient arrival to our facility today is 1433. The patient went to bed between 11 and 12 PM yesterday and then he woke up by this morning, he thinks around 8am and felt weak over the right side and as result fell but denies loss of consciousness. Patient denies any history of stroke in the past. He stated that the he has history of hypertension is not compliant with medication. He states that he takes aspirin 81 mg but does not take it on daily basis. Used to smoke 2 packs of cigarettes daily and stopped after being the diagnosed with his recent COVID-19 towards the end of the April 2021. Patient was recently discharged from our facility yesterday. During his recent the hospital visit patient had acute hypoxic respiratory failure due to COVID-19, newly diagnosed systolic heart failure with ejection fraction of 2024%, acute kidney injury, non-ST elevation [place]. Cardiolo gy and pulmonology were involved in the case. Per cardiology note states that the patient requires cardiac catheterization in the future to rule out underlying coronary artery disease. The place the patient on metoprolol. There are holding off the statin because of transaminitis. Of note patient's states that he has a remote history of severe alcohol use and he said that more than 20 years ago. He denies of any illicit drug use. He denies of any significant family history of strokes. Some of the workup in the hospital consisted of: Initial vital signs was blood pressure 140/77, heart rate of 86, temperature of 97 the degrees Fahrenheit axillary, respiratory of 18, pulse ox of 88% room air. CBC with differential is unremarkable Chemistry panel is AST of 152, ALT of 227, troponin is 0.109. Calcium is 9.3 otherwise the rest of chemistry panel is unremarkable. Stroke code was activated by the ED team. CT of the head is reported as age-related atrophy and chronic small vessel ischemic change without acute intracranial process seen at this time. I personally reviewed the CT of the head and I agree with the finding. There is no acute or subacute ischemic stroke. There is no intraparenchymal bleed. CT angiography of the head and neck was reported as no significant abnormality noted. The ED team spoke with the stroke team Dr. Way. No IV TPA since the patient was outside the window of more than 4.5 hours of last normal state. Moderate concentric left ventricular hypertrophy. Left atrium is severely dilated more than 4 year. Patient had a recent 2-D echo on 06/15/2020 and ejection fraction was 20-25%. Moderate concentric left ventricular hypertrophy. Left atrium is severely dilated. Review of Systems Review of system: The 12 point system was reviewed and apparent positive and negative per HPI. Past Medical History Past Medical History: Hypertension Additional Past Medical History / Comment(s): covid 06/08/21 History of Any Multi-Drug Resistant Organisms: None Reported Past Surgical History: No Surgical Hx Reported Past Anesthesia/Blood Transfusion Reactions: No Reported Reaction Past Psychological History: No Psychological Hx Reported Smoking Status: Former smoker Past Alcohol Use History: None Reported Additional Past Alcohol Use History / Comment(s): Pt reports previous history of heavy alcohol use. Also reports prior to being covid positive pt smoked two pac ks a day Past Drug Use History: None Reported - Past Family History Father Family Medical History: No Reported History Mother Family Medical History: Neurologic Disorder Additional Family Medical History / Comment(s): MS Medications and Allergies Home Medications Medication Instructions Recorded Confirmed Type Aspirin 81 mg PO DAILY #30 tab 06/18/21 06/19/21 Rx Metoprolol Succinate (ER) [Toprol 50 mg PO DAILY #30 tab 06/18/21 06/19/21 Rx XL] Spironolactone [Aldactone] 25 mg PO DAILY #30 tab 06/18/21 06/19/21 Rx lisinopriL [Zestril] 10 mg PO DAILY 30 Days #30 tab 06/18/21 06/19/21 Rx Allergies Allergy/AdvReac Type Severity Reaction Status Date / Time No Known Allergies Allergy Verified 06/19/21 15:56 Physical Examination - Vital Signs Vital Signs: Vital Signs Temp Pulse Resp BP Pulse Ox 06/19/21 14:46 97 F L 86 18 140/77 88 L Intake and Output 06/19/21 06/19/21 06/19/21 06:59 14:59 22:59 Other: Weight 136.078 kg GENERAL: The patient is lying in bed and is not in acute distress. CHEST: The heart rate is regular rate rhythm. No murmurs to auscultation. No carotid bruit bilaterally. LUNG: Clear to auscultation bilaterally no wheezing noted throughout. Not labored breathing. ABDOMEN/GI: Bowel sounds present in all 4 quadrants. No tenderness to palpation throughout. NEUROLOGICAL: Higher mental function: The patient is awake, alert, oriented to self, place and time. Patient is following commands. No aphasia and no neglect. Cranial nerves: The pupils are round, equal and reactive to light and accommodation. Visual contreras are full to confrontation throughout. Extraocular movement is intact no nystagmus is noted. Facial sensation is normal to touch throughout. The facial strength is moderate to severe right lower facial droop (central type). Hearing is normal bilaterally to hand rub. Tongue is midline and moved [id number] without any difficulty. Mild dysarthria is noted. Shou lder shrug is normal bilaterally. Motor: The strength is right upper extremity is 4+. Has right pronator drift. Right lower extremity is 3/5. Left sided is 5/5. Normal tone and bulk. Cerebellum: Right finger to nose is mildly dysmetric. Sensation: Sensation is normal to touch throughout. Reflexes (right/left): 2+ throughout. Plantars are mute bilaterally. Results - Laboratory Findings CBC and BMP: 06/19/21 14:39 06/19/21 14:39 Abnormal Lab Findings: Abnormal Labs 06/19/21 06/19/21 14:39 14:39 BUN 24 H Glucose 120 H Total Bilirubin 2.1 H AST 152 H ALT 227 H Troponin I 0.109 H* Assessment and Plan Assessment: Acute right facial droop and right sided hemiparesis due to stroke. No IV TPA since outside the window. Newly diagnosed systolic heart failure with ejection fraction of 20-25% Positive COVID-19 pneumonia on 05/09/2021 Hypertension and medication non-compliance Elevated liver function test with AST of 152 and ALT of 227. Mild elevated troponin Recent non-STEMI elevation [place] Recent acute hypoxic respiratory failure due to COVID-19 Tobacco use of 2 packs per day Remote alcohol use more than 20 years ago Plan: I ordered MRI of the brain urgent. Patient was given aspirin 325 once in the ED then was started on aspirin 325 daily. I decreased the aspirin to 81 mg and started the patient on Plavix 75 mg daily. I loaded the patient on Lipitor 80mg once and was started on Lipitor 40mg qhs (if he has elevated transaminitis then will lower medications and severely elevated will hold medications). I ordered limited 2-D echo (had recent echo on 06/15/2020), lipid panel, TSH level and HbA1c. Cardiology team is consulted for ANN-MARIE. Every 4 hours neuro checks Is on cardiac monitoring PT, OT and [employer] are is consulted We'll defer the rest of the medical management to primary team. Started the patient on subcu heparin 5000 units every 12 hours The plan is discussed with the patient and his nurse. Thank you for the consultation. Yaron Stauffer M.D. Neuro-Hospitalist Time with Patient: Greater than 30
[2021-06-19] MEDS: CLOPIDOGREL 75 MG TAB PO SCH (19:19)
[2021-06-19] MEDS: SODIUM CHLORIDE 0.9% 1,000 ML IV SCH (19:19)
[2021-06-19] MEDS: HEPARIN SODIUM,PORCINE/PF 5,000 UNIT/0.5 ML SYRINGE SQ SCH (19:22)
[2021-06-19] MEDS ORDERED: ATORVASTATIN 40 MG TAB PO SCH (21:00)
[2021-06-20] MEDS: SODIUM CHLORIDE 0.9% 1,000 ML IV SCH ×3 (04:32→22:10)
[2021-06-20 08:11] LABS: Basophils # (A) 0.1 k/uL (0-0.2); Basophils % (A) 1 %; Eosinophils # (A) 0.1 k/uL (0-0.7); Eosinophils % (A) 1 %; HCT 49.1 % (39.0-53.0); HGB 16.6 gm/dL (13.0-17.5); Lymphocytes # (A) 1.3 k/uL (1.0-4.8); Lymphocytes % (A) 16 %; MCH 34.2 pg (25.0-35.0); MCHC 33.8 g/dL (31.0-37.0); MCV 101.1 fL (80.0-100.0); Macrocytosis Slight; Mean Platelet Volume 7.9; Monocytes # (A) 0.6 k/uL (0-1.0); Monocytes % (A) 8 %; Neutrophils # (A) 5.6 k/uL (1.3-7.7); Neutrophils % (A) 72 %; Platelet Count 337 k/uL (150-450); RBC 4.85 m/uL (4.30-5.90); RDW 13.5 % (11.5-15.5); WBC 7.8 k/uL (3.8-10.6)
[2021-06-20 08:45] LABS: ALT 225 U/L (4-49); AST 120 U/L (17-59); African American GFR (CKD) 81 (>60 ml/min/1.73 sqM); Albumin 3.6 g/dL (3.5-5.0); Alkaline Phosphatase 74 U/L (38-126); Anion Gap 3 mmol/L; Blood Urea Nitrogen 23 mg/dL (9-20); Calcium 9.3 mg/dL (8.4-10.2); Carbon Dioxide 27 mmol/L (22-30); Chloride 109 mmol/L (98-107); Glucose 108 mg/dL (74-99); Non-African American GFR(CKD) 70 (>60 ml/min/1.73 sqM); Potassium 4.4 mmol/L (3.5-5.1); Sodium 139 mmol/L (137-145); Total Bilirubin 2.8 mg/dL (0.2-1.3); Total Protein 6.9 g/dL (6.3-8.2)
[2021-06-20] MEDS ORDERED: ASPIRIN 325 MG TAB PO SCH (09:00)
[2021-06-20] MEDS: METOPROLOL SUCCINATE (ER) 50 MG TAB.ER.24H PO SCH (09:48)
[2021-06-20] MEDS: HEPARIN SODIUM,PORCINE/PF 5,000 UNIT/0.5 ML SYRINGE SQ SCH ×2 (09:48→21:07)
[2021-06-20] MEDS: CLOPIDOGREL 75 MG TAB PO SCH (09:48)
[2021-06-20] MEDS: ASPIRIN 81 MG PO SCH (09:48)
[2021-06-20] MEDS: SPIRONOLACTONE 25 MG TAB PO SCH (09:48)
[2021-06-20] MEDS: lisinopriL 10 MG TAB PO SCH (09:48)
--- NOTE | 2021-06-20 10:20 | P.CRDCN ---
History of Present Illness Consult date: 06/20/21 History of present illness: HISTORY OF PRESENT ILLNESS: This is a 55-year-old male with a past medical history significant for hypertension and nicotine dependence of 2 packs per day. 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 Patient was recently admitted to the hospital secondary to Covid 19 and acute renal failure. Patient was also found to have transaminitis and cardiomyopathy with an ejection fraction of 20-25%. We have been asked to see the patient in consultation for CVA, ANN-MARIE. Patient examined at the bedside. The patient was discharged home on June 18, 2021 in stable condition. Patient states once he got home he began having weakness which she states continued to get worse. Initially when speaking to the patient he states he had generalized weakness and it was not localized to one side of his body. Upon further questioning, the patient reports he had more weakness on the right side of his body. The patient also repeat ports that he was having slurred speech and feels like he is continuing to have slurred speech this morning. His speech does not appear to be slurred at the time of my examination. The patient reports he had a fall at home. Patient denies having any signs he was going to fall such as dizziness or lightheadedness. He currently denies chest pain or pressure. He denies shortness of breath. The patient is coughing frequently during examination. He denies having any sputum production. EKG reveals sinus mechanism with T-wave inversions in lead I and V6. PVCs. Chest xray patchy density right medial lung base may reflect developing pneumonia. Laboratory data: WBC 7.8. Hemoglobin 10.6. Platelet count 337. Sodium 139. Potassium 4.2. BUN 23. Creatinine 1.17. AST 120. ALT 225. Troponin 0.109. 0.109. 0.110. TSH 3.770. Current home cardiac medications include lisinopril 10 mg daily, spironolactone 25 mg daily, metoprolol succinate 50 mg daily, and aspirin 81 mg daily Most recent echocardiogram obtained in May 2021 revealed ejection fraction 20-25%, mild mitral regurgitation, mild tricuspid regurgitation CT brain: Age-related atrophic and chronic small vessel ischemic changes without acute intracranial process CT angiogram and no significant diameter reduction to account for patient's symptoms. No significant abnormality noted. REVIEW OF SYSTEMS: Thorough review of systems not completed secondary to limited evaluation/examination due to Covid19 PHYSICAL EXAM: Thorough physical exam not completed secondary to limited evaluation/examination due to Covid19 ASSESSMENT: Right sided weakness, r/o acute CVA Covid 19 Abnormal troponins, not suggestive of ACS, suspect secondary to Covid 19 infe ction Cardiomyopathy, etiology unclear Hypertension Transaminitis Recent acute kidney injury, resolved Nicotine dependence, patient smokes 2 packs per day. patient states he quit last week PLAN: Repeat echo ordered. Await awaits MRI pending Neurology following Continue aspirin and plavix Continue Lipitor. Monitor LFTs Resume additional home cardiac medications Continue telemetry monitoring to assess for any cardiac arrhythmias Await results of MRI and repeat echocardiogram. Pending these results, we will make determination regarding possible ANN-MARIE. No plans for ANN-MARIE today. Further recommendations pending patient's course Nurse practitioner note has been reviewed by physician. Signing provider agrees with the documented findings, assessment, and plan of care. Past Medical History Past Medical History: Hypertension Additional Past Medical History / Comment(s): covid 06/08/21 History of Any Multi-Drug Resistant Organisms: None Reported Past Surgical History: No Surgical Hx Reported Past Anesthesia/Blood Transfusion Reactions: No Reported Reaction Past Psychological History: No Psychological Hx Reported Smoking Status: Former smoker Past Alcohol Use History: None Reported Additional Past Alcohol Use History / Comment(s): Pt reports previous history of heavy alcohol use. Also reports prior to being covid positive pt smoked two packs a day Past Drug Use History: None Reported - Past Family History Father Family Medical History: No Reported History Mother Family Medical History: Neurologic Disorder Additional Family Medical History / Comment(s): MS Medications and Allergies Home Medications Medication Instructions Recorded Confirmed Type Aspirin 81 mg PO DAILY #30 tab 06/18/21 06/19/21 Rx Metoprolol Succinate (ER) [Toprol 50 mg PO DAILY #30 tab 06/18/21 06/19/21 Rx XL] Spironolactone [Aldactone] 25 mg PO DAILY #30 tab 06/18/21 06/19/21 Rx lisinopriL [Zestril] 10 mg PO DAILY 30 Days #30 tab 06/18/21 06/19/21 Rx Allergies Allergy/AdvReac Type Severity Reaction Status Date / Time No Known Allergies Allergy Verified 06/19/21 15:56 Physical Exam Vitals: Vital Signs Temp Pulse Pulse Resp BP BP Pulse Ox 02/02/22 04:00 60 20 147/98 92 L 06/20/21 02:00 20 06/20/21 00:00 98.2 F 55 L 20 132/81 92 L 06/19/21 23:40 18 06/19/21 23:06 78 20 132/72 98 06/19/21 21:25 80 20 130/80 98 06/19/21 21:21 98.7 F 61 18 132/84 94 L 06/19/21 20:30 78 20 129/82 97 06/19/21 19:30 82 18 121/81 98 06/19/21 18:20 70 18 128/77 98 06/19/21 17:30 72 20 144/70 99 06/19/21 16:25 68 20 133/75 98 06/19/21 15:30 98 18 128/90 98 06/19/21 14:46 97 F L 86 18 140/77 88 L Intake and Output 06/19/21 06/19/21 06/20/21 14:59 22:59 06:59 Other: # Voids 2 # Bowel Movements 2 Weight 136.078 kg 136.078 kg Results 06/20/21 07:46 06/20/21 07:46 Cardiac Enzymes 06/19/21 06/19/21 06/19/21 Range/Units 14:39 14:39 17:04 AST 152 H (17-59) U/L Troponin I 0.109 H* 0.119 H* (0.000-0.034) ng/mL 06/19/21 Range/Units 20:19 AST (17-59) U/L Troponin I 0.110 H* (0.000-0.034) ng/mL Coagulation 06/19/21 Range/Units 14:39 PT 11.1 (9.0-12.0) sec APTT 19.1 L (22.0-30.0) sec CBC 06/19/21 Range/Units 14:39 WBC 7.6 (3.8-10.6) k/uL RBC 4.84 (4.30-5.90) m/uL Hgb 16.5 (13.0-17.5) gm/dL Hct 48.0 (39.0-53.0) % Plt Count 312 (150-450) k/uL Comprehensive Metabolic Panel 06/19/21 Range/Units 14:39 Sodium 139 (137-145) mmol/L Potassium 4.2 (3.5-5.1) mmol/L Chloride 107 (98-107) mmol/L Carbon Dioxide 24 (22-30) mmol/L BUN 24 H (9-20) mg/dL Creatinine 1.12 (0.66-1.25) mg/dL Glucose 120 H (74-99) mg/dL Calcium 9.3 (8.4-10.2) mg/dL AST 152 H (17-59) U/L ALT 227 H (4-49) U/L Alkaline Phosphatase 73 (38-126) U/L Total Protein 6.7 (6.3-8.2) g/dL Albumin 3.6 (3.5-5.0) g/dL Current Medications Generic Name Dose Route Start Last Admin Trade Name Freq PRN Reason Stop Dose Admin Acetaminophen 650 mg 06/19/21 16:09 06/20/21 04:32 Acetaminophen Tab 325 Mg Tab PO 650 mg Q6HR PRN Administration Mild Pain or Fever > 100.5 Al Hydroxide/Mg Hydroxide 15 ml 06/19/21 16:09 Mag Hydrox/Al Hydrox/Simeth 30 Ml Cup PO Q6HR PRN Indigestion Aspirin 81 mg 06/20/21 09:00 Aspirin 81 Mg PO DAILY SHARRON Atorvastatin Calcium 40 mg 06/20/21 21:00 Atorvastatin 40 Mg Tab PO HS SHARRON Clopidogrel Bisulfate 75 mg 06/19/21 17:00 06/19/21 19:19 Clopidogrel 75 Mg Tab PO 75 mg DAILY SHARRON Administration Heparin Sodium (Porcine) 5,000 unit 06/19/21 21:00 06/19/21 19:22 Heparin Sodium,Porcine/Pf 5,000 Unit/0.5 Ml Syringe SQ 5,000 unit Q12HR SHARRON Administration Sodium Chloride 1,000 mls @ 100 mls/hr 06/19/21 16:00 06/20/21 04:32 Saline 0.9% IV Not Given .Q10H SHARRON Loperamide HCl 2 mg 06/19/21 16:09 06/20/21 05:13 Loperamide 2 Mg Cap PO 2 mg Q2HR PRN Administration Loose Stool Metoprolol Succinate 50 mg 06/20/21 09:00 Metoprolol Succinate (Er) 50 Mg Tab.Er.24h PO DAILY SHARRON Naloxone HCl 0.2 mg 06/19/21 16:09 Naloxone 0.4 Mg/Ml 1 Ml Vial IV Q2M PRN Opioid Reversal Ondansetron HCl 4 mg 06/19/21 16:09 Ondansetron 4 Mg/2 Ml Vial IVP Q8HR PRN Nausea And Vomiting Intake and Output 06/19/21 06/19/21 06/20/21 14:59 22:59 06:59 Other: # Voids 2 # Bowel Movements 2 Weight 136.078 kg 136.078 kg Patient Weight 06/20/21 06:59 Weight 136.078 kg 06/19/21 14:39 06/19/21 14:39
--- NOTE | 2021-06-20 10:42 | ECHOF ---
Referral Reason:limited. Stroke MEASUREMENTS -------- HEIGHT: 182.9 cm WEIGHT: 136.1 kg BP: RVIDd: 3.7 cm (< 3.3) FINDINGS -------- Pt had Echo 06/15/21: Dr Xiomy alba limited echo with [facility]. There is severe global hypokinesis of LV . Overall left ventricular systolic function is severely i mpaired with, an EF < 20%. CONCLUSIONS -------- 1. Pt had Echo 06/15/21: Dr Xiomy alba limited echo with [facility]. 2. There is severe global hypokinesis of LV . 3. Overall left ventricular systolic function is severely impaired with, an EF < 20%. INSOLE AND OUTSOLE PREPARER: Renay Christopher RDCS
--- NOTE | 2021-06-20 11:23 | P.PN ---
Subjective Progress Note Date: 06/20/21 The patient is seen at bedside and he feels he is about the same today compared to yesterday. He continues to have weakness over the right side. He denies of any worsening of his symptoms. Objective - Vital Signs Vital signs: Vital Signs Temp 98 F 06/20/21 08:00 Pulse 69 06/20/21 08:00 Resp 20 06/20/21 08:00 BP 106/66 06/20/21 08:00 Pulse Ox 96 06/20/21 08:00 Intake & Output 06/19/21 06/20/21 06/20/21 18:59 06:59 18:59 Weight 136.078 kg 136.078 kg Other: # Voids 2 # Bowel Movements 2 - Exam GENERAL: The patient is lying in bed and is not in acute distress. NEUROLOGICAL: Higher mental function: The patient is awake, alert, oriented to self, place and time. Patient is following commands. No aphasia and no neglect. Cranial nerves: The pupils are round, equal and reactive to light and accommodation. Visual contreras are full to confrontation throughout. Extraocular movement is intact no nystagmus is noted. Facial sensation is normal to touch throughout. The facial strength is moderate to severe right lower facial droop (central type). Hearing is normal bilaterally to hand rub. Tongue is midline and moved [id number] without any difficulty. Mild dysarthria is noted. Shoulder shrug is normal bilaterally. Motor: The strength is right upper extremity is 4+. Has right pronator drift. Right lower extremity is 3/5. Left sided is 5/5. Normal tone and bulk. Cerebellum: Right finger to nose is mildly dysmetric. Sensation: Sensation is normal to touch throughout. Reflexes (right/left): 2+ throughout. Plantars are mute bilaterally. WORK-UP: Chemistry panel is AST of 152, ALT of 227, troponin is 0.109. Repeated troponin is 0.119 and 0.110. Hemoglobin A1c is 6.[address] of the head is reported as age-related atrophy and chronic small vessel ischemic change without acute intracranial process seen at this time. I personally reviewed the CT of the head and I agree with the finding. There is no acute or subacute ischemic stroke. There is no intraparenchymal bleed. CT angiography of the head and neck was reported as no significant abnormality noted. recent 2-D echo on 06/15/2020 and ejection fraction was 20-25%. Moderate concentric left ventricular hypertrophy. Left atrium is severely dilated. Limited 2-D echo is reported as severe global hypokinesis with ejection fraction less than 20%. - Labs CBC & Chem 7: 06/20/21 07:46 06/20/21 07:46 Labs: Abnormal Lab Results - Last 24 Hours (Table) 06/19/21 06/19/21 06/19/21 Range/Units 14:39 14:39 14:39 MCV (80.0-100.0) fL APTT 19.1 L (22.0-30.0) sec Chloride (98-107) mmol/L BUN 24 H (9-20) mg/dL Glucose 120 H (74-99) mg/dL Hemoglobin A1c (0.0-6.0) % Total Bilirubin 2.1 H (0.2-1.3) mg/dL AST 152 H (17-59) U/L ALT 227 H (4-49) U/L Troponin I 0.109 H* (0.000-0.034) ng/mL Coronavirus (PCR) (Not Detectd) 06/19/21 06/19/21 06/19/21 Range/Units 17:04 17:04 20:19 MCV (80.0-100.0) fL APTT (22.0-30.0) sec Chloride (98-107) mmol/L BUN (9-20) mg/dL Glucose (74-99) mg/dL Hemoglobin A1c 6.5 H (0.0-6.0) % Total Bilirubin (0.2-1.3) mg/dL AST (17-59) U/L ALT (4-49) U/L Troponin I 0.119 H* 0.110 H* (0.000-0.034) ng/mL Coronavirus (PCR) (Not Detectd) 06/20/21 06/20/21 06/20/21 Range/Units 07:00 07:46 07:46 MCV 101.1 H (80.0-100.0) fL APTT (22.0-30.0) sec Chloride 109 H (98-107) mmol/L BUN 23 H (9-20) mg/dL Glucose 108 H (74-99) mg/dL Hemoglobin A1c (0.0-6.0) % Total Bilirubin 2.8 H (0.2-1.3) mg/dL AST 120 H (17-59) U/L ALT 225 H (4-49) U/L Troponin I (0.000-0.034) ng/mL Coronavirus (PCR) Detected A (Not Detectd) Assessment and Plan Assessment: Acute right facial droop and right sided hemiparesis (weaker over lower > upper) due to stroke. No IV TPA since outside the window. Newly diagnosed systolic heart failure with ejection fraction of 20-25% and repeated echo is <20% Positive COVID-19 pneumonia on 05/09/2021 Hypertension and medication non-compliance Elevated liver function test with AST of 152 and ALT of 227. Newly diagnosed Diabetes Mellitus (HbA1c: 6.5) Mild elevated troponin Recent non-STEMI elevation OK Recent acute hypoxic respiratory failure due to COVID-19 Tobacco use of 2 packs per day Remote alcohol use more than 20 years ago Plan: Pending MRI of the brain urgent. Continue aspirin to 81 mg and Plavix 75 mg daily (prior was taking only ASA sporadically). Continue Lipitor 40mg qhs (if he has worsened elevation transaminitis then will lower medications and severely elevated will hold medications). Lipid panel is pending. Cardiology team is consulted for ANN-MARIE. Every 4 hours neuro checks Is on cardiac monitoring PT, OT and PARTY HOST are consulted We'll defer the rest of the medical management to primary team. For DVT prophylaxis subcu heparin 5000 units every 12 hours The plan is discussed with the patient and his nurse. Yaron Stauffer M.D. Neuro-Hospitalist Time with Patient: Less than 30
--- NOTE | 2021-06-20 11:37 | P.PN ---
Subjective Progress Note Date: 06/20/21 Patient still have right facial weakness no complaints of chest pain today or shortness of breath 55-year-old male with past medical history of hypertension recent Covid diagnoses we'll just recently discharged from the hospital admitted to the hospital for right sided weakness mainly facial weakness that started this a.m. the patient woke up with weakness Patient still have right facial weakness Denies any chest pain or shortness of breath Review of systems and systems has been reviewed all negative and positive findings as per history of present illness Constitutional: No acute distress, conversant, pleasant Eyes: Anicteric sclerae, moist conjunctiva, no lid-lag PERRLA ENMT: NC/AT Oropharynx clear, no erythema, exudates Neck: Supple, FROM, no masses, or JVD No carotid bruits No thyromegaly Lungs: Clear to auscultation Clear to percussion Normal respiratory effort, no accessory muscle use Cardiovascular: Heart regular in rate and rhythm, No murmurs, gallops, or rubs No peripheral edema Abdominal: Soft Nontender, no guarding, rebound or rigidity Abdomen moving with respiration Normoactive bowel sounds No hepatomegaly, No splenomegaly No palpable mass No abdominal wall hernia noted Skin: Normal temperature, tone, texture, turgor No induration No subcutaneous nodules No rash, lesions No ulcers Extremities: No digital cyanosis No clubbing Pedal pulses intact and symmetrical Radial pulses intact and symmetrical Normal gait and station No calf tenderness Psychiatric:Alert and oriented to person, place and time Appropriate affect Intact judgement Neuro: Generalized weakness Right facial weakness Await MRI results Right facial weakness CVA suspected patient out of the therapeutic window for TPA we'll check MRI of the brain will consult neurology Patient has been started on aspirin Hypertension Objective - Vital Signs Vital signs: Vital Signs Temp 98 F 06/20/21 08:00 Pulse 69 06/20/21 08:00 Resp 20 06/20/21 08:00 BP 106/66 06/20/21 08:00 Pulse Ox 96 06/20/21 08:00 Intake & Output 06/19/21 06/20/21 06/20/21 18:59 06:59 18:59 Weight 136.078 kg 136.078 kg Other: # Voids 2 # Bowel Movements 2 - Labs CBC & Chem 7: 06/20/21 07:46 02/02/22 07:46 Labs: Abnormal Lab Results - Last 24 Hours (Table) 06/19/21 06/19/21 06/19/21 Range/Units 14:39 14:39 14:39 MCV (80.0-100.0) fL APTT 19.1 L (22.0-30.0) sec Chloride (98-107) mmol/L BUN 24 H (9-20) mg/dL Glucose 120 H (74-99) mg/dL Hemoglobin A1c (0.0-6.0) % Total Bilirubin 2.1 H (0.2-1.3) mg/dL AST 152 H (17-59) U/L ALT 227 H (4-49) U/L Troponin I 0.109 H* (0.000-0.034) ng/mL Coronavirus (PCR) (Not Detectd) 06/19/21 06/19/21 06/19/21 Range/Units 17:04 17:04 20:19 MCV (80.0-100.0) fL APTT (22.0-30.0) sec Chloride (98-107) mmol/L BUN (9-20) mg/dL Glucose (74-99) mg/dL Hemoglobin A1c 6.5 H (0.0-6.0) % Total Bilirubin (0.2-1.3) mg/dL AST (17-59) U/L ALT (4-49) U/L Troponin I 0.119 H* 0.110 H* (0.000-0.034) ng/mL Coronavirus (PCR) (Not Detectd) 06/20/21 06/20/21 06/20/21 Range/Units 07:00 07:46 07:46 MCV 101.1 H (80.0-100.0) fL APTT (22.0-30.0) sec Chloride 109 H (98-107) mmol/L BUN 23 H (9-20) mg/dL Glucose 108 H (74-99) mg/dL Hemoglobin A1c (0.0-6.0) % Total Bilirubin 2.8 H (0.2-1.3) mg/dL AST 120 H (17-59) U/L ALT 225 H (4-49) U/L Troponin I (0.000-0.034) ng/mL Coronavirus (PCR) Detected A (Not Detectd)
[2021-06-20 15:40] LABS: Chol/HDL Ratio 3.94 Ratio; LDL Cholesterol,Calculated 74.1 mg/dL (0.0-131.0)
--- NOTE | 2021-06-20 16:21 | MR ---
MR brain without contrast HISTORY: Cerebrovascular accident, right-sided weakness Multiplanar multisequence imaging through the brain Correlation to CT brain 06/19/2021 FINDINGS: There is some motion on the exam. Low-attenuation within the verna on the left corresponds to restricted diffusion on brain MRI, there i s corresponding hyperintensity on inversion recovery and T2-weighted sequences within the left verna, low signal on T1-weighted images. Scattered and confluent pericallosal, periventricular hyperintensit ies on inversion recovery T2-weighted sequences are noted. There is no evident hemorrhage or hydrocep halus. Cortical atrophy is is present as on CT. There are expected vascular flow voids. Cerebellopont ine angles, corpus callosum, pituitary, cervical medullary junction are within normal limits. Extensi ve inflammatory change present in the ethmoid air cells, left maxillary and frontal sinus is noted. O rbits show symmetric appearance. IMPRESSION: Findings consistent with cerebral vascular accident as described within the left verna. Co rtical atrophy. Extensive sinus disease. Nonspecific white matter demyelination, cortical atrophy.
--- NOTE | 2021-06-20 17:19 | P.PN ---
Progress Note - Text Patient was unavailable for consultation today.
[2021-06-20] MEDS: ATORVASTATIN 40 MG TAB PO SCH (21:07)
[2021-06-21 08:39] LABS: Albumin 3.6 g/dL (3.5-5.0); Calcium 9.2 mg/dL (8.4-10.2); Potassium 4.1 mmol/L (3.5-5.1); Total Bilirubin 2.3 mg/dL (0.2-1.3); Total Protein 6.8 g/dL (6.3-8.2)
[2021-06-21 08:48] LABS: Basophils % (A) 0 %; Eosinophils # (A) 0.1 k/uL (0-0.7); Eosinophils % (A) 1 %; HCT 50.8 % (39.0-53.0); HGB 16.9 gm/dL (13.0-17.5); Lymphocytes # (A) 1.1 k/uL (1.0-4.8); Lymphocytes % (A) 14 %; MCH 33.7 pg (25.0-35.0); MCHC 33.2 g/dL (31.0-37.0); MCV 101.5 fL (80.0-100.0); Macrocytosis Slight; Mean Platelet Volume 7.6; Monocytes # (A) 0.5 k/uL (0-1.0); Monocytes % (A) 7 %; Neutrophils # (A) 5.8 k/uL (1.3-7.7); Neutrophils % (A) 75 %; Platelet Count 338 k/uL (150-450); RBC 5.01 m/uL (4.30-5.90); WBC 7.7 k/uL (3.8-10.6)
[2021-06-21] MEDS: HEPARIN SODIUM,PORCINE/PF 5,000 UNIT/0.5 ML SYRINGE SQ SCH ×2 (09:44→20:24)
[2021-06-21] MEDS: METOPROLOL SUCCINATE (ER) 50 MG TAB.ER.24H PO SCH (09:44)
[2021-06-21] MEDS: CLOPIDOGREL 75 MG TAB PO SCH (09:44)
[2021-06-21] MEDS: ASPIRIN 81 MG PO SCH (09:44)
[2021-06-21] MEDS: SPIRONOLACTONE 25 MG TAB PO SCH (09:44)
[2021-06-21] MEDS: lisinopriL 10 MG TAB PO SCH ×2 (09:44→20:24)
[2021-06-21] MEDS: SODIUM CHLORIDE 0.9% 1,000 ML IV SCH ×2 (09:45→17:52)
--- NOTE | 2021-06-21 10:45 | P.PN ---
Subjective Progress Note Date: 06/21/21 Patient still have right sided facial weakness which is slightly improving Patient still have right facial weakness no complaints of chest pain today or shortness of breath 55-year-old male with past medical history of hypertension recent Covid diagnoses we'll just recently discharged from the hospital admitted to the hospital for right sided weakness mainly facial weakness that started this a.m. the patient woke up with weakness Patient still have right facial weakness Denies any chest pain or shortness of breath Review of systems and systems has been reviewed all negative and positive fin dings as per history of present illness Constitutional: No acute distress, conversant, pleasant Eyes: Anicteric sclerae, moist conjunctiva, no lid-lag PERRLA ENMT: NC/AT Oropharynx clear, no erythema, exudates Neck: Supple, FROM, no masses, or JVD No carotid bruits No thyromegaly Lungs: Clear to auscultation Clear to percussion Normal respiratory effort, no accessory muscle use Cardiovascular: Heart regular in rate and rhythm, No murmurs, gallops, or rubs No peripheral edema Abdominal: Soft Nontender, no guarding, rebound or rigidity Abdomen moving with respiration Normoactive bowel sounds No hepatomegaly, No splenomegaly No palpable mass No abdominal wall hernia noted Skin: Normal temperature, tone, texture, turgor No induration No subcutaneous nodules No rash, lesions No ulcers Extremities: No digital cyanosis No clubbing Pedal pulses intact and symmetrical Radial pulses intact and symmetrical Normal gait and station No calf tenderness Psychiatric:Alert and oriented to person, place and time Appropriate affect Intact judgement Neuro: Generalized weakness Right facial weakness Await MRI results Right facial weakness Acute CVA in the verna Neurology following Patient has been started on aspirin Hypertension Objective - Vital Signs Vital signs: Vital Signs Temp 98.5 F 06/21/21 00:00 Pulse 57 L 06/21/21 03:52 Resp 18 06/21/21 03:52 BP 131/75 06/21/21 03:52 Pulse Ox 97 06/21/21 03:52 Intake & Output 06/20/21 06/21/21 06/21/21 18:59 06:59 18:59 Intake Total 360 240 Output Total 525 Balance -165 240 Intake: Oral 360 240 Output: Urine 525 Other: # Voids 1 2 - Labs CBC & Chem 7: 06/21/21 08:10 06/21/21 08:10 Labs: Abnormal Lab Results - Last 24 Hours (Table) 06/20/21 06/21/21 06/21/21 Range/Units 07:46 08:10 08:10 MCV 101.5 H (80.0-100.0) fL Glucose 105 H (74-99) mg/dL Total Bilirubin 2.3 H (0.2-1.3) mg/dL AST 69 H (17-59) U/L ALT 171 H (4-49) U/L Triglycerides 189.00 H (0.00-149.00) mg/dL HDL Cholesterol 38.10 L (40.00-60.00) mg/dL
--- NOTE | 2021-06-21 10:50 | P.PN ---
Subjective Progress Note Date: 06/21/21 HISTORY OF PRESENT ILLNESS: This is a 55-year-old male with a past medical history significant for hypertension and nicotine dependence of 2 packs per day. 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 Patient was recently admitted to the hospital secondary to Covid 19 and acute renal failure. Patient was also found to have transaminitis and cardiomyopathy with an ejection fraction of 20-25%. We have been asked to see the patient in consultation for CVA, ANN-MARIE. Patient examined at the bedside. The patient was discharged home on June 18, 2021 in stable condition. Patient states once he got home he began having weakness which she states continued to get worse. Initially when speaking to the patient he states he had generalized weakness and it was not localized to one side of his body. Upon further questioning, the patient reports he had more weakness on the right side of his body. The patient also repeat ports that he was having slurred speech and feels like he is continuing to have slurred speech this morning. His speech does not appear to be slurred at the time of my examination. The patient reports he had a fall at home. Patient denies having any signs he was going to fall such as dizziness or lightheadedness. He currently denies chest pain or pressure. He denies shortness of breath. The patient is coughing frequently during examination. He denies having any sputum production. EKG reveals sinus mechanism with T-wave inversions in lead I and V6. PVCs. Chest xray patchy density right medial lung base may reflect developing pneumonia. Laboratory data: WBC 7.8. Hemoglobin 10.6. Platelet count 337. Sodium 139. Potassium 4.2. BUN 23. Creatinine 1.17. AST 120. ALT 225. Troponin 0.109. 0.109. 0.110. TSH 3.770. Current home cardiac medications include lisinopril 10 mg daily, spironolactone 25 mg daily, metoprolol succinate 50 mg daily, and aspirin 81 mg daily Most recent echocardiogram obtained in May 2021 revealed ejection fraction 20-25%, mild mitral regurgitation, mild tricuspid regurgitation CT brain: Age-related atrophic and chronic small vessel ischemic changes without acute intracranial process CT angiogram and no significant diameter reduction to account for patient's symptoms. No significant abnormality noted. 06/21/2021 Patient examined this morning at the bedside. Patient denies chest pain or pressure. He denies shortness of breath. Patient states his cough has improved since yesterday. He continues to have right-sided weakness. Repeat limited echocardiogram reveals EF less than 20%. MRI of the brain reveals findings consistent with cerebrovascular accident within the left verna. Cortical atrophy. Extensive sinus disease. Nonspecific white matter demyelination. Cortical atrophy. PHYSICAL EXAM: Thorough physical exam not completed secondary to limited evaluation/examination due to Covid19 ASSESSMENT: Right sided weakness Acute CVA, left verna per MRI Covid 19 Abnormal troponins, not suggestive of ACS, suspect secondary to Covid 19 infection Cardiomyopathy, etiology unclear Hypertension Transaminitis Recent acute kidney injury, resolved Nicotine dependence, patient smokes 2 packs per day. patient states he quit last week PLAN: Continue current cardiac medications Neurology following Continue aspirin and plavix Continue Lipitor. Monitor LFTs Resume additional home cardiac medications Continue telemetry monitoring to assess for any cardiac arrhythmias Case discussed with neurology. Will plan for outpatient ANN-MARIE once patient is recovered from Covid. Further recommendations pending patient's course Nurse practitioner note has been reviewed by physician. Signing provider agrees with the documented findings, assessment, and plan of care. Objective - Vital Signs Vital signs: Vital Signs Temp 98.5 F 06/21/21 00:00 Pulse 57 L 06/21/21 03:52 Resp 18 06/21/21 03:52 BP 131/75 06/21/21 03:52 Pulse Ox 97 06/21/21 03:52 Intake & Output 06/20/21 06/21/21 06/21/21 18:59 06:59 18:59 Intake Total 360 240 Output Total 525 Balance -165 240 Intake: Oral 360 240 Output: Urine 525 Other: # Voids 1 2 - Labs CBC & Chem 7: 06/21/21 08:10 06/21/21 08:10 Labs: Abnormal Lab Results - Last 24 Hours (Table) 06/20/21 06/21/21 06/21/21 Range/Units 07:46 08:10 08:10 MCV 101.5 H (80.0-100.0) fL Glucose 105 H (74-99) mg/dL Total Bilirubin 2.3 H (0.2-1.3) mg/dL AST 69 H (17-59) U/L ALT 171 H (4-49) U/L Triglycerides 189.00 H (0.00-149.00) mg/dL HDL Cholesterol 38.10 L (40.00-60.00) mg/dL
--- NOTE | 2021-06-21 11:22 | P.PN ---
Subjective Progress Note Date: 06/21/21 The patient is seen at bedside and he feels about the same. Objective - Vital Signs Vital signs: Vital Signs Temp 98.5 F 06/21/21 00:00 Pulse 57 L 06/21/21 03:52 Resp 18 06/21/21 03:52 BP 131/75 06/21/21 03:52 Pulse Ox 97 06/21/21 03:52 Intake & Output 06/20/21 06/21/21 06/21/21 18:59 06:59 18:59 Intake Total 360 240 Output Total 525 Balance -165 240 Intake: Oral 360 240 Output: Urine 525 Other: # Voids 1 2 - Exam GENERAL: The patient is lying in bed and is not in acute distress. NEUROLOGICAL: Higher mental function: The patient is awake, alert, oriented to self, place and time. Patient is following commands. No aphasia and no neglect. Cranial nerves: The pupils are round, equal and reactive to light and accommodation. Visual contreras are full to confrontation throughout. Extraocular movement is intact no nystagmus is noted. Facial sensation is normal to touch throughout. The facial strength is moderate to severe right lower facial droop (central type). Hearing is normal bilaterally to hand rub. Tongue is midline and moved [id number] without any difficulty. Mild dysarthria is noted. Susana ulder shrug is normal bilaterally. Motor: The strength is right upper extremity is 4+. Has right pronator drift. Right lower extremity is 3/5. Left sided is 5/5. Normal tone and bulk. Cerebellum: Right finger to nose is mildly dysmetric. Sensation: Sensation is normal to touch throughout. Reflexes (right/left): 2+ throughout. Plantars are mute bilaterally. WORK-UP: Chemistry panel is AST of 152, ALT of 227, troponin is 0.109. Repeated troponin is 0.119 and 0.110. Hemoglobin A1c is 6.5 TSH is 3.770. Lipid panel is triglyceride 189, cholesterol is 150, LDL is [address] of the head is reported as age-related atrophy and chronic small vessel ischemic change without acute intracranial process seen at this time. I personally reviewed the CT of the head and I agree with the finding. There is no acute or subacute ischemic stroke. There is no intraparenchymal bleed. CT angiography of the head and neck was reported as no significant abnormality noted. recent 2-D echo on 06/15/2020 and ejection fraction was 20-25%. Moderate concentric left ventricular hypertrophy. Left atrium is severely dilated. MRI Brain w/o: Is reported as finding consistent with cerebral vascular accident as described within the left verna. Cortical atrophy. Extensive sinus disease. Nonspecific white matter demyelination, cortical atrophy. I personally reviewed the MRI and I do agree the patient had an acute the left medial pontine stroke Limited 2-D echo is reported as severe global hypokinesis with ejection fraction less than 20%. - Labs CBC & Chem 7: 06/21/21 08:10 06/21/21 08:10 Labs: Abnormal Lab Results - Last 24 Hours (Table) 06/20/21 06/21/21 06/21/21 Range/Units 07:46 08:10 08:10 MCV 101.5 H (80.0-100.0) fL Glucose 105 H (74-99) mg/dL Total Bilirubin 2.3 H (0.2-1.3) mg/dL AST 69 H (17-59) U/L ALT 171 H (4-49) U/L Triglycerides 189.00 H (0.00-149.00) mg/dL HDL Cholesterol 38.10 L (40.00-60.00) mg/dL Assessment and Plan Assessment: Acute ischemic stroke in medial left pontine (has right facial droop and sided hemiparesis (weaker over lower > upper). No IV TPA since outside the window. Etiology is likely small vessel disease (with his risk factor: HTN, DM, tobacco use, heart failure). Newly diagnosed systolic heart failure with ejection fraction of 20-25% and repeated echo is <20% Positive COVID-19 pneumonia on 05/09/2021 Hypertension and medication non-compliance Transaminitis--trending down Newly diagnosed Diabetes Mellitus (HbA1c: 6.5) Mild elevated troponin Recent non-STEMI elevation AR Recent acute hypoxic respiratory failure due to COVID-19 Tobacco use of 2 packs per day Remote alcohol use more than 20 years ago Plan: Continue aspirin to 81 mg and Plavix 75 mg daily (prior was taking only ASA sporadically). From neurological perpective to be on dual antiplatelets and after 21 days stop Plavix and continue ASA 81mg indefinitely. Continue Lipitor 40mg qhs (if he has worsened elevation transaminitis then will lower medications and severely elevated will hold medications). LDL goal in stroke is <70. Cardiology team is consulted for ANN-MARIE. I spoke with cardiology team (Estefanía Wade N.P.) and agree with ANN-MARIE as outpatient. Every 4 hours neuro checks Is on cardiac monitoring. So far per telemetry sinus rhythm no A-fib or flut ter. Ordered holter monitor for 30 days and follow-up with cardiology team. PT, OT and RIVET TAPPING MACHINE OPERATOR are consulted We'll defer the rest of the medical management to primary team. For DVT prophylaxis subcu heparin 5000 units every 12 hours. Upon discharge, the patient to follow-up with a neurologist within 1-[address] Sea Roman is consulted for inpatient rehab and I feel patient would benefit from inpatient rehab. The plan is discussed with the patient and his nurse. There is no further neurological work-up. Patient is clear from neurological perspective. Yaron Stauffer M.D. Neuro-Hospitalist Time with Patient: Less than 30
--- NOTE | 2021-06-21 11:45 | P.CONS ---
History of Present Illness - Chief Complaint Gait disturbance, right hemiparesthesias - History of Present Illness I had the opportunity to see patient for inpatient rehab consultation with regard to gait disturbance. He was admitted to [facility] June 19 with acute onset right-sided weakness. Recent discharge for: Positive pneumonia. Seen by neurology, Dr. Michele for the stroke. Seen by cardiology for new CHF. Laboratories chest x-ray with right middle lobe infiltrate and thoracic DDD. Angiogram CT with mild plaques common carotid arteries. CT of head with age- related and small vessel change. A brain MRI demonstrated acute left verna infarct as well as cerebral atrophy, white matter change and sinus disease. His started therapies. PT reports supervision to minimal assistance for bed mobi lity and minimal assistance for transfers and gait 24 feet with roller walker. Balance poor. OT reports minimal assistance for upper dressing, bathing, toileting and functional mobility, moderate assistance for lower dressing. Speech therapy reports mild cognitive deficits. However stopping therapy this time due to infarct being in the verna. Previous functional history as elicited from patient: Left-handed single white male who is lives in one floor home. 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 Previously independent indeed including cooking, laundry, driving, standing shower and gait without device. Does not have PCP. Was a 2 pack a day smoker but quit since covert. Denies alcohol. Review of Systems Review of systems: ENT: Denies sneezes or discharge. Eyes: Denies discharge or photophobia. Cardiac: Denies chest pain or palpitation. Pulmonary: Denies cough or shortness of breath. Gastrointestinal: Denies nausea, emesis, constipation, diarrhea. Genitourinary: Denies discharge or frequency. Musculoskeletal: Denies muscle or bone aches. Neurologic: Right-sided weakness and numbness. Endocrine: Denies shakes or sweats. Oncology: Denies cancers. Dermatologic: Denies rash, itching, pruritus. ALLERGY/immunology: Denies sneezes, rashes. Past Medical History Past Medical History: Hypertension Additional Past Medical History / Comment(s): covid 06/08/21 History of Any Multi-Drug Resistant Organisms: None Reported Past Surgical History: No Surgical Hx Reported Past Anesthesia/Blood Transfusion Reactions: No Reported Reaction Past Psychological History: No Psychological Hx Reported Smoking Status: Former smoker Past Alcohol Use History: None Reported Additional Past Alcohol Use History / Comment(s): Pt reports previous history of heavy alcohol use. Also reports prior to being covid positive pt smoked two packs a day Past Drug Use History: None Reported - Past Family History Father Family Medical History: No Reported History Mother Family Medical History: Neurologic Disorder Additional Family Medical History / Comment(s): MS Medications and Allergies Home Medications Medication Instructions Recorded Confirmed Type Aspirin 81 mg PO DAILY #30 tab 06/18/21 06/19/21 Rx Metoprolol Succinate (ER) [Toprol 50 mg PO DAILY #30 tab 06/18/21 06/19/21 Rx XL] Spironolactone [Aldactone] 25 mg PO DAILY #30 tab 06/18/21 06/19/21 Rx lisinopriL [Zestril] 10 mg PO DAILY 30 Days #30 tab 06/18/21 06/19/21 Rx Allergies Allergy/AdvReac Type Severity Reaction Status Date / Time No Known Allergies Allergy Verified 06/19/21 15:56 Physical Exam Vitals: Vital Signs Temp Pulse Resp BP Pulse Ox 06/21/21 08:00 98.1 F 67 18 144/87 98 06/21/21 03:52 57 L 18 131/75 97 06/21/21 02:00 59 L 18 06/21/21 00:00 98.5 F 59 L 18 141/92 93 L 06/20/21 20:00 98 F 58 L 18 149/97 94 L 06/20/21 17:17 97.4 F L 70 18 149/90 93 L 06/20/21 16:00 18 06/20/21 13:25 61 18 06/20/21 12:00 97.8 F 61 18 113/76 97 Intake and Output 06/20/21 06/21/21 06/21/21 22:59 06:59 14:59 Intake Total 360 240 Output Total 525 Balance -165 240 Intake: Oral 360 240 Output: Urine 525 Other: # Voids 1 2 Skin: Good color, texture, turgor. General: Medium build and comfortable appearance. Head: Normocephalic, atraumatic. Eyes: Symmetric. Pupils equal round. Ears: Symmetric. Hearing within normal limits. Mouth: Clear. Neck: Supple. Carotid without bruit. Cardiac: Regular rate and rhythm. Lungs: Clear anteriorly and posteriorly. Abdomen: Soft active nontender. Extremities: Normal tone. Neurological: Mental status: Alert, cooperative, pleasant. Cranial nerves: Symmetric facial tone and trapezius. Motor: Normal strength and isolation left arm and leg. Right arm fair plus and fair at hand. Right leg good minus and ankle. Sensation: Intact throughout. DTRs: Symmetric and equal throughout. Mobility: Sits with assistance. Results CBC & Chem 7: 06/21/21 08:10 06/21/21 08:10 Labs: Abnormal Lab Results - Last 24 Hours (Table) 06/20/21 06/21/21 06/21/21 Range/Units 07:46 08:10 08:10 MCV 101.5 H (80.0-100.0) fL Glucose 105 H (74-99) mg/dL Total Bilirubin 2.3 H (0.2-1.3) mg/dL AST 69 H (17-59) U/L ALT 171 H (4-49) U/L Triglycerides 189.00 H (0.00-149.00) mg/dL HDL Cholesterol 38.10 L (40.00-60.00) mg/dL Assessment and Plan (1) Cerebrovascular accident (CVA) Current Visit: Yes Status: Acute Code(s): I63.9 - CEREBRAL INFARCTION, UNSPECIFIED SNOMED Code(s): 701803916 (2) Pneumonia due to COVID-19 virus Current Visit: No Status: Acute Code(s): U07.1 - COVID-19; J12.82 - PNEUMONIA DUE TO CORONAVIRUS DISEASE 2019 SNOMED Code(s): 546699381496279474 Plan: Comments and plan: At this time safety concerns are noted. Patient able tolerate and benefit from therapies. Note that he has no real for support for discharge or return to home at this time. Thus would recommend full inpatient rehab and patient seems agreeable.
[2021-06-21] MEDS: ATORVASTATIN 40 MG TAB PO SCH (20:24)
[2021-06-22] MEDS: SODIUM CHLORIDE 0.9% 1,000 ML IV SCH ×2 (05:31→15:10)
[2021-06-22 06:12] VITALS: RESP 18; TEMP 97.6
--- NOTE | 2021-06-22 08:46 | P.PN ---
Subjective Progress Note Date: 06/22/21 Patient still have right sided facial weakness which is slightly improving Patient still have right facial weakness no complaints of chest pain today or shortness of breath 55-year-old male with past medical history of hypertension recent Covid diagnoses we'll just recently discharged from the hospital admitted to the hospital for right sided weakness mainly facial weakness that started this a.m. the patient woke up with weakness Patient still have right facial weakness Denies any chest pain or shortness of breath Review of systems and systems has been reviewed all negative and positive fi ndings as per history of present illness Constitutional: No acute distress, conversant, pleasant Eyes: Anicteric sclerae, moist conjunctiva, no lid-lag PERRLA ENMT: NC/AT Oropharynx clear, no erythema, exudates Neck: Supple, FROM, no masses, or JVD No carotid bruits No thyromegaly Lungs: Clear to auscultation Clear to percussion Normal respiratory effort, no accessory muscle use Cardiovascular: Heart regular in rate and rhythm, No murmurs, gallops, or rubs No peripheral edema Abdominal: Soft Nontender, no guarding, rebound or rigidity Abdomen moving with respiration Normoactive bowel sounds No hepatomegaly, No splenomegaly No palpable mass No abdominal wall hernia noted Skin: Normal temperature, tone, texture, turgor No induration No subcutaneous nodules No rash, lesions No ulcers Extremities: No digital cyanosis No clubbing Pedal pulses intact and symmetrical Radial pulses intact and symmetrical Normal gait and station No calf tenderness Psychiatric:Alert and oriented to person, place and time Appropriate affect Intact judgement Neuro: Generalized weakness Right facial weakness Cardiomyopathy with ejection fraction less than 20% cardiology following Right facial weakness Acute CVA in the verna Neurology following Patient has been started on aspirin Hypertension Hopefully discharge in patient rehab early next week Objective - Vital Signs Vital signs: Vital Signs Temp 97.6 F 06/22/21 04:00 Pulse 63 06/22/21 04:00 Resp 18 06/22/21 04:00 BP 117/80 06/22/21 04:00 Pulse Ox 95 06/22/21 04:00 Intake & Output 06/21/21 06/22/21 06/22/21 18:59 06:59 18:59 Intake Total 838 Balance 838 Intake: Oral 838 Other: # Voids 2 1 - Labs CBC & Chem 7: 06/21/21 08:10 06/21/21 08:10 Labs: Abnormal Lab Results - Last 24 Hours (Table) 06/21/21 Range/Units 08:10 MCV 101.5 H (80.0-100.0) fL
[2021-06-22 09:23] LABS: Basophils % (A) 1 %; Eosinophils # (A) 0.1 k/uL (0-0.7); Eosinophils % (A) 1 %; HCT 44.8 % (39.0-53.0); HGB 15.1 gm/dL (13.0-17.5); Lymphocytes # (A) 1.1 k/uL (1.0-4.8); Lymphocytes % (A) 17 %; MCH 33.8 pg (25.0-35.0); MCHC 33.8 g/dL (31.0-37.0); Mean Platelet Volume 7.5; Monocytes # (A) 0.5 k/uL (0-1.0); Monocytes % (A) 7 %; Neutrophils # (A) 4.9 k/uL (1.3-7.7); Neutrophils % (A) 72 %; Platelet Count 305 k/uL (150-450); RBC 4.48 m/uL (4.30-5.90); WBC 6.7 k/uL (3.8-10.6)
[2021-06-22 09:41] LABS: ALT 124 U/L (4-49); AST 54 U/L (17-59); African American GFR (CKD) >90 (>60 ml/min/1.73 sqM); Albumin 3.1 g/dL (3.5-5.0); Alkaline Phosphatase 67 U/L (38-126); Anion Gap 5 mmol/L; Blood Urea Nitrogen 20 mg/dL (9-20); Carbon Dioxide 26 mmol/L (22-30); Chloride 107 mmol/L (98-107); Glucose 107 mg/dL (74-99); Non-African American GFR(CKD) 78 (>60 ml/min/1.73 sqM); Potassium 4.4 mmol/L (3.5-5.1); Sodium 138 mmol/L (137-145); Total Bilirubin 1.9 mg/dL (0.2-1.3); Total Protein 6.1 g/dL (6.3-8.2)
[2021-06-22] MEDS: lisinopriL 10 MG TAB PO SCH (09:49)
[2021-06-22] MEDS: SPIRONOLACTONE 25 MG TAB PO SCH (09:49)
[2021-06-22] MEDS: CLOPIDOGREL 75 MG TAB PO SCH (09:49)
[2021-06-22] MEDS: METOPROLOL SUCCINATE (ER) 50 MG TAB.ER.24H PO SCH (09:49)
[2021-06-22] MEDS: ASPIRIN 81 MG PO SCH (09:49)
[2021-06-22] MEDS: HEPARIN SODIUM,PORCINE/PF 5,000 UNIT/0.5 ML SYRINGE SQ SCH (09:49)
--- NOTE | 2021-06-22 10:54 | P.DS ---
Providers Date of admission: 06/19/21 16:07 Expected date of discharge: 06/22/21 Attending physician: Tamra Rowland DO Consults: 06/19/21 15:52 Consult Physician Urgent Consulting Provider: Yaron Stauffer Consult Reason/Comments: cva Do you want consulting provider notified?: Yes 06/19/21 16:54 Consult Physician Routine Consulting Provider: Jim Chin Consult Reason/Comments: cva ,possible ANN-MARIE Do you want consulting provider notified?: Yes 06/20/21 10:48 Consult Physician Routine Consulting Provider: Sea Roman Consult Reason/Comments: Eval for IPR Do you want consulting provider notified?: Yes Primary care physician: Stated None Hospital Course: 55-year-old male admitted to the hospital with acute CVA affecting the right facial muscles patient did have acute CVA to the verna Patient has been evaluated by cardiology and neurology has been started on lisinopril and beta blockers statins and Plavix Patient also was diagnosed with COVID-19 infection Overall the condition of the patient has been stable and patient was cleared to be discharged on inpatient rehab Constitutional: No acute distress, conversant, pleasant Eyes: Anicteric sclerae, moist conjunctiva, no lid-lag PERRLA ENMT: NC/AT Oropharynx clear, no erythema, exudates Neck: Supple, FROM, no masses, or JVD No carotid bruits No thyromegaly Lungs: Clear to auscultation Clear to percussion Normal respiratory effort, no accessory muscle use Cardiovascular: Heart regular in rate and rhythm, No murmurs, gallops, or rubs No peripheral edema Abdominal: Soft Nontender, no guarding, rebound or rigidity Abdomen moving with respiration Normoactive bowel sounds No hepatomegaly, No splenomegaly No palpable mass No abdominal wall hernia noted Skin: Normal temperature, tone, texture, turgor No induration No subcutaneous nodules No rash, lesions No ulcers Extremities: No digital cyanosis No clubbing Pedal pulses intact and symmetrical Radial pulses intact and symmetrical Normal gait and station No calf tenderness Psychiatric:Alert and oriented to person, place and time Appropriate affect Intact judgement Neuro: Right facial weakness Discharge plan Acute CVA involving the left verna patient will be discharged to an inpatient rehab in a stable condition New-onset cardiomyopathy with ejection fraction around 20% patient to follow-up with cardiology as an outpatient To be continued on lisinopril and beta blockers and statins Patient also to follow-up with neurology as an outpatient in 1-2 weeks Patient to follow-up with primary care physician after discharge COVID-19 infection no respiratory symptoms at this time Patient Condition at Discharge: Stable Plan - Discharge Summary Discharge Rx Participant: No New Discharge Prescriptions: New Atorvastatin [Lipitor] 40 mg PO HS tab Clopidogrel [Plavix] 75 mg PO DAILY tab Continue Spironolactone [Aldactone] 25 mg PO DAILY #30 tab Aspirin 81 mg PO DAILY #30 tab Metoprolol Succinate (ER) [Toprol XL] 50 mg PO DAILY #30 tab lisinopriL [Zestril] 10 mg PO DAILY 30 Days #30 tab Discharge Medication List Aspirin 81 mg PO DAILY #30 tab 06/18/21 [Rx] Metoprolol Succinate (ER) [Toprol XL] 50 mg PO DAILY #30 tab 06/18/21 [Rx] Spironolactone [Aldactone] 25 mg PO DAILY #30 tab 06/18/21 [Rx] lisinopriL [Zestril] 10 mg PO DAILY 30 Days #30 tab 06/18/21 [Rx] Atorvastatin [Lipitor] 40 mg PO HS tab 06/22/21 [Rx] Clopidogrel [Plavix] 75 mg PO DAILY tab 06/22/21 [Rx] Follow up Appointment(s)/Referral(s): None,Stated [Primary Care Provider] - 1-2 days Discharge Disposition: DC/[facility] INTERMEDIATE CARE FAC
[2021-06-22 11:07] VITALS: BP 143/82
--- NOTE | 2021-06-22 11:49 | P.PN ---
Subjective Progress Note Date: 06/22/21 HISTORY OF PRESENT ILLNESS: This is a 55-year-old male with a past medical history significant for hypertension and nicotine dependence of 2 packs per day. 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 Patient was recently admitted to the hospital secondary to Covid 19 and acute renal failure. Patient was also found to have transaminitis and cardiomyopathy with an ejection fraction of 20-25%. We have been asked to see the patient in consultation for CVA, ANN-MARIE. Patient examined at the bedside. The patient was discharged home on June 18, 2021 in stable condition. Patient states once he got home he began having weakness which she states continued to get worse. Initially when speaking to the patient he states he had generalized weakness and it was not localized to one side of his body. Upon further questioning, the patient reports he had more weakness on the right side of his body. The patient also repeat ports that he was having slurred speech and feels like he is continuing to have slurred speech this morning. His speech does not appear to be slurred at the time of my examination. The patient reports he had a fall at home. Patient denies having any signs he was going to fall such as dizziness or lightheadedness. He currently denies chest pain or pressure. He denies shortness of breath. The patient is coughing frequently during examination. He denies having any sputum production. EKG reveals sinus mechanism with T-wave inversions in lead I and V6. PVCs. Chest xray patchy density right medial lung base may reflect developing pneumonia. Laboratory data: WBC 7.8. Hemoglobin 10.6. Platelet count 337. Sodium 139. Potassium 4.2. BUN 23. Creatinine 1.17. AST 120. ALT 225. Troponin 0.109. 0.109. 0.110. TSH 3.770. Current home cardiac medications include lisinopril 10 mg daily, spironolactone 25 mg daily, metoprolol succinate 50 mg daily, and aspirin 81 mg daily Most recent echocardiogram obtained in May 2021 revealed ejection fraction 20-25%, mild mitral regurgitation, mild tricuspid regurgitation CT brain: Age-related atrophic and chronic small vessel ischemic changes without acute intracranial process CT angiogram and no significant diameter reduction to account for patient's symptoms. No significant abnormality noted. 06/21/2021 Patient examined this morning at the bedside. Patient denies chest pain or pressure. He denies shortness of breath. Patient states his cough has improved since yesterday. He continues to have right-sided weakness. Repeat limited echocardiogram reveals EF less than 20%. MRI of the brain reveals findings consistent with cerebrovascular accident within the left verna. Cortical atrophy. Extensive sinus disease. Nonspecific white matter demyelination. Cortical atrophy. 06/22/2021 Patient examined this point the bedside. Patient denies chest pain or pressure. He denies shortness of breath. Telemetry reviewed overnight revealing a run of nonsustained ventricular tachycardia. No atrial fibrillation noted. Patient's vital signs are stable. PHYSICAL EXAM: Thorough physical exam not completed secondary to limited evaluation/examination due to Covid19 ASSESSMENT: Right sided weakness Acute CVA, left verna per MRI Covid 19 Abnormal troponins, not suggestive of ACS, suspect secondary to Covid 19 infection Cardiomyopathy, etiology unclear Hypertension Transaminitis Recent acute kidney injury, resolved Nicotine dependence, patient smokes 2 packs per day. patient states he quit last week Nonsustained ventricular tachycardia PLAN: Continue current cardiac medications Will plan for outpatient ANN-MARIE once patient is recovered from Covid Patient stable for DC home today from a cardiac standpoint Further recommendations pending patient's course Nurse practitioner note has been reviewed by physician. Signing provider agrees with the documented findings, assessment, and plan of care. Objective - Vital Signs Vital signs: Vital Signs Temp 97.6 F 06/22/21 04:00 Pulse 61 06/22/21 08:00 Resp 18 06/22/21 08:00 BP 143/82 06/22/21 08:00 Pulse Ox 95 06/22/21 08:00 Intake & Output 06/21/21 06/22/21 06/22/21 18:59 06:59 18:59 Intake Total 838 240 Output Total 450 Balance 838 -210 Intake: Oral 838 240 Output: Urine 450 Other: # Voids 2 1 - Labs CBC & Chem 7: 06/22/21 09:02 06/22/21 09:02 Labs: Abnormal Lab Results - Last 24 Hours (Table) 06/22/21 Range/Units 09:02 Glucose 107 H (74-99) mg/dL Total Bilirubin 1.9 H (0.2-1.3) mg/dL ALT 124 H (4-49) U/L Total Protein 6.1 L (6.3-8.2) g/dL Albumin 3.1 L (3.5-5.0) g/dL
[2021-06-22 12:13] VITALS: PULSE 55
== END 2021-06-22 15:20 | DRG 64 ==
LOC: EC 14:33 → 3SCARD 16:07
PROVIDERS: ADMIT Internal Medicine; ATTEND Internal Medicine
DX: I63.29 Cerebral infarction due to unspecified occlusion or stenosis of other precerebral arteries (principal); U07.1 COVID-19; G81.91 Hemiplegia, unspecified affecting right dominant side; I50.22 Chronic systolic (congestive) heart failure; I42.9 Cardiomyopathy, unspecified; I47.2 Ventricular tachycardia; I49.3 Ventricular premature depolarization; M51.34 Other intervertebral disc degeneration, thoracic region; W19.XXXA Unspecified fall, initial encounter; F17.210 Nicotine dependence, cigarettes, uncomplicated; E11.9 Type 2 diabetes mellitus without complications; R29.706 NIHSS score 6; I11.0 Hypertensive heart disease with heart failure; R29.810 Facial weakness; Z91.14 Patient's other noncompliance with medication regimen; I25.2 Old myocardial infarction; Y92.009 Unspecified place in unspecified non-institutional (private) residence as the place of occurrence of the external cause; Z79.82 Long term (current) use of aspirin; Z79.899 Other long term (current) drug therapy
CPT/HCPCS: 36415; 70450; 70496; 70498; 70551; 71045; 80053; 80061; 83036; 84443; 84484; 85025; 85610; 85730; 87635; 93005; 93270; 93308; 96372; 99285